=== PATIENT | female | born 1975 | race African-American/Black ===

== ENCOUNTER 2023-05-03 18:29 | Inpatient (IN) | payer OTHER, SELFPAY ==
[2023-05-03] VITALS (30 sets, daily range): BP systolic 124–163; BP diastolic 80–98; PULSE 59–78; RESP 7–28; TEMP 36.4; O2SAT 95–100; BMI 32.7
--- NOTE | 2023-05-03 19:07 | ECG_ITS ---
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
--- NOTE | 2023-05-03 19:07 | XR_ITS ---
The [address] [address] Patient Name: LEXII GRIFFIN MRN: [id number] date: 1975 Sex: F Assigned Patient Location: ER Current Patient Location: ER Accession/Order Number: [id number] Exam Date: 05/03/2023 19:15 Report Date: 05/03/2023 19:31 At the request of: GAYE CORREA Procedure: XR chest 1V EXAMINATION: XR chest 1V HISTORY: Chest pain COMPARISON: None. TECHNIQUE: Portable chest FINDINGS: The lung parenchyma is free of consolidation or infiltrate. No pneumothorax or pleural effusion. The cardiac, mediastinal and hilar contours are normal. The visualized osseous structures exhibit no gross abnormality. XR/XR chest 1V IMPRESSION: No acute cardiopulmonary abnormality. Electronically authenticated by: CHAPO LEONG Date: 05/03/2023 19:31
[2023-05-03 19:17] LABS: Basophils Percent Auto 0.4 % (0.2-2.0); Eosinophils Absolute Auto 0.2 10^3/uL (0.0-0.7); Eosinophils Percent Auto 3.2 % (0.9-7.0); Hematocrit 41.8 % (36.0-48.0); Hemoglobin 13.4 g/dL (12.0-16.0); Immature Granulocytes Abs Auto 0.02 10^3/uL (0.00-0.03); Immature Granulocytes Pct Auto 0.3 % (0.0-0.5); Lymphocytes Absolute Auto 2.7 10^3/uL (1.2-3.8); Lymphocytes Percent Auto 39.6 % (20.5-60.0); Mean Corpuscular HGB Conc 32.1 g/dL (29.9-35.2); Mean Corpuscular Hemoglobin 31.3 pg (26.7-34.0); Mean Corpuscular Volume 97.7 fL (81.0-99.0); Mean Platelet Volume 8.6 fL (9.5-13.5); Monocytes Absolute Auto 0.5 10^3/uL (0.3-0.8); Monocytes Percent Auto 6.7 % (1.7-12.0); Neutrophils Absolute Auto 3.4 10^3/uL (1.4-6.5); Neutrophils Percent Auto 49.8 % (43.0-75.0); Platelet Count 365 10^3/uL (150-450); Red Blood Count 4.28 10^6/uL (4.20-5.40); Red Cell Distribution Width 13.3 % (11.0-15.0); White Blood Count 6.9 10^3/uL (4.0-11.0)
--- NOTE | 2023-05-03 19:22 | ED_ITS ---
HPI - Chest Pain General Chief Complaint: Chest Pain Stated Complaint: CHEST PAIN Time Seen by Provider: 05/03/23 19:18 Source: patient Mode of arrival: walk-in History of Present Illness HPI narrative: past history of CAD s/p stents x3. Presents complaining of chest pain on and off for the past couple of days. Nausea and vomiting yesterday. No recurrence. Pain radiates into her left arm. No associated dyspnea MD complaint: Reports chest pain Pain radiation: Reports left arm Risk Factors Coronary artery disease risk factors: hyperlipidemia Related Data Home Medications Medication Instructions Recorded Confirmed alprazolam 0.5 mg tablet 0.5 mg PO DAILY PRN anxiety 05/03/23 05/03/23 aspirin 81 mg tablet,delayed 81 mg PO DAILY 05/03/23 05/03/23 release (Adult Low Dose Aspirin) atorvastatin 80 mg tablet 80 mg PO DAILY 05/03/23 05/03/23 celecoxib 100 mg capsule 100 mg PO DAILY 05/03/23 05/03/23 clopidogrel 75 mg tablet 75 mg PO DAILY 05/03/23 05/03/23 diltiazem HCl 180 mg 180 mg PO DAILY 05/03/23 05/03/23 capsule,extended release 24 hr isosorbide mononitrate 60 mg 60 mg PO DAILY 05/03/23 05/03/23 tablet,extended release 24 hr latanoprost 0.005 % eye drops 1 drp ophthalmic (eye) DAILY 05/03/23 05/03/23 ranolazine 500 mg tablet,extended 500 mg PO BID 05/03/23 05/03/23 release,12 hr topiramate 100 mg tablet 100 mg PO BID 05/03/23 05/03/23 Allergies Allergy/AdvReac Type Severity Reaction Status Date / Time No Known Drug Allergies Allergy Verified 05/03/23 18:39 Review of Systems ROS Status of ROS 10 or more systems reviewed and unremarkable except as noted in history and below [facility] Medical History (Updated 05/03/23 @ 18:58 by Astrid Nevarez) Surgical History (Updated 05/03/23 @ 18:58 by Astrid Nevarez) Exam Constitutional Vital Signs, click to edit/add: Last Vital Signs Pulse 60 05/03/23 20:20 Resp 7 L 05/03/23 20:20 BP 129/94 H 05/03/23 20:15 Pulse Ox 99 05/03/23 20:20 O2 Del Method Room Air 05/03/23 18:53 Common normals: no apparent distress, average body habitus, oriented x3, no limitations, healthy appearing, alert and well nourished Eye Common normals: EOMs intact bilaterally and conjunctivae normal Respiratory Common normals: normal respiratory effort, no retractions, no use of accessory muscles and clear to auscultation bilaterally Cardio Common normals: no JVD, regular rate, regular rhythm, S1 normal heart sound and S2 normal heart sound GI Common normals: Normal to inspection, nondistended, normoactive bowel sounds present, soft to palpation and non-tender Extremity Common normals: normal to inspection and full ROM Neuro Common normals: oriented x3, CN's II-XII intact bilaterally, moves all extremities, no focal motor deficits and no sensory deficits noted Psych Appearance: grossly normal Course Vital Signs Vital signs: Vital Signs Pulse Rate 72 05/03/23 18:35 Respiratory Rate 18 05/03/23 18:35 Blood Pressure 152/98 H 05/03/23 18:35 Pulse Oximetry 100 05/03/23 18:35 Oxygen Delivery Method Room Air 05/03/23 18:35 Pulse Rate 60 05/03/23 20:20 Respiratory Rate 7 L 05/03/23 20:20 Blood Pressure 129/94 H 05/03/23 20:15 Pulse Oximetry 99 05/03/23 20:20 Oxygen Delivery Method Room Air 05/03/23 18:53 MDM - Chest Pain MDM Narrative Medical decision making narrative: patient past history of CAD s/p stent placement. Pain on and off since yesterday. Nausea and vomiting yesterday. Pain radiates to left arm. EKG without acute changes. cxray clear and first troponin neg. Discussed with Hospitalist and patient accepted for admission Lab Data Labs: Lab Results 05/03/23 Range/Units 18:50 WBC 6.9 (4.0-11.0) 10^3/uL RBC 4.28 (4.20-5.40) 10^6/uL Hgb 13.4 (12.0-16.0) g/dL Hct 41.8 (36.0-48.0) % MCV 97.7 (81.0-99.0) fL MCH 31.3 (26.7-34.0) pg MCHC 32.1 (29.9-35.2) g/dL RDW 13.3 (11.0-15.0) % Plt Count 365 (150-450) 10^3/uL MPV 8.6 L (9.5-13.5) fL Neut % (Auto) 49.8 (43.0-75.0) % Lymph % (Auto) 39.6 (20.5-60.0) % [place] % (Auto) 6.7 (1.7-12.0) % Eos % (Auto) 3.2 (0.9-7.0) % Baso % (Auto) 0.4 (0.2-2.0) % Neut # (Auto) 3.4 (1.4-6.5) 10^3/uL Lymph # (Auto) 2.7 (1.2-3.8) 10^3/uL [place] # (Auto) 0.5 (0.3-0.8) 10^3/uL Eos # (Auto) 0.2 (0.0-0.7) 10^3/uL Baso # (Auto) 0.0 (0.0-0.1) 10^3/uL Abs Immat Gran (auto) 0.02 (0.00-0.03) 10^3/uL Imm/Tot Granulo (auto) 0.3 (0.0-0.5) % Sodium 144 (136-145) mmol/L Potassium 3.7 (3.5-5.1) mmol/L Chloride 109 H (98-107) mmol/L Carbon Dioxide 25.1 (21.0-32.0) mmol/L Anion Gap 13.6 BUN 18.0 (7.0-18.0) mg/dL Creatinine 1.17 H (0.55-1.02) mg/dL Est GFR ( Amer) 60 (>=60) Est GFR (Non-Af Amer) 49 L (>=60) BUN/Creatinine Ratio 15.4 Glucose 73 L (74-106) mg/dL Calcium 8.7 (8.5-10.1) mg/dL Troponin I High Sens 23.2 (4.0-51.3) pg/mL Discharge Plan Discharge Chief Complaint: Chest Pain Prescriptions / Home Meds: No Action alprazolam 0.5 mg tablet 0.5 mg PO DAILY PRN (Reason: anxiety) atorvastatin 80 mg tablet 80 mg PO DAILY celecoxib 100 mg capsule 100 mg PO DAILY clopidogrel 75 mg tablet 75 mg PO DAILY diltiazem HCl 180 mg capsule,extended release 24hr 180 mg PO DAILY isosorbide mononitrate 60 mg tablet extended release 24 hr 60 mg PO DAILY latanoprost 0.005 % drops 1 drp OPHTHALMIC (EYE) DAILY ranolazine 500 mg tablet extended release 12 hr 500 mg PO BID topiramate 100 mg tablet 100 mg PO BID aspirin [Adult Low Dose Aspirin] 81 mg tablet,delayed release (DR/EC) 81 mg PO DAILY
[2023-05-03] MEDS: MORPHINE SULFATE 4 MG/ML VIAL IM (19:37)
[2023-05-03 19:43] LABS: Anion Gap 13.6; BUN Creatinine Ratio 15.4; Calcium 8.7 mg/dL (8.5-10.1); Carbon Dioxide 25.1 mmol/L (21.0-32.0); Chloride 109 mmol/L (98-107); Estimated GFR (African America 60 (>=60); Estimated GFR (Non-African Ame 49 (>=60); Glucose 73 mg/dL (74-106); Potassium 3.7 mmol/L (3.5-5.1); Sodium 144 mmol/L (136-145); Troponin I High Sensitivity 23.2 pg/mL (4.0-51.3)
[2023-05-03] MEDS: MORPHINE SULFATE 2 MG/ML SYRINGE IV (23:31)
[2023-05-03] MEDS: ONDANSETRON PF 4 MG/2 ML VIAL IV (23:33)
[2023-05-03 23:44] LABS: Troponin I High Sensitivity 165.4 pg/mL (4.0-51.3)
[2023-05-04] VITALS (69 sets, daily range): BP systolic 104–145; BP diastolic 41–94; PULSE 56–90; RESP 2–37; TEMP 35.9–36.6; O2SAT 94–99
--- NOTE | 2023-05-04 01:24 | P.PN_ITS ---
Progress Note: Subjective Subjective Interval history: Patient is a 47-year-old female with history of CAD s/p stent x3, angina, HTN, history of prior CVA, depression and anxiety who presents with complaint of recurrent chest pain. Patient states that she awoke Thursday morning around 2 AM, 2 days ago, with sharp midsternal chest pain which radiated to both arms but more predominantly in the left arm. She reports that she took 3 nitroglycerin and then Ativan before she had enough relief to go back to sleep. Upon waking up later Thursday morning, she reports that she continued to have mild chest pain but was not as severe and was able to tolerate it. She reports having a history of angina and did not think much of it initially but states that as the day progressed, she had Chest pain with activity therefore became concerned and decided to come to the ED. In the ED, vitals were essentially stable. Labs noted for creatinine 1.17, glucose 73 otherwise rest of labs within normal limits. Initial troponin was 23.2. [address]603, NSR without any evidence of ischemia. Chest x-ray negative for acute findings. Patient was treated with morphine in the ED with improvement and admitted to the floor. Upon arrival to the floor, repeat troponins were ordered serially and troponin returned elevated at 165.4. She rates her current pain a 4-5 on pain scale. Case was discussed with on-call cardiology at [facility] who recommended initiation of heparin drip and nitroglycerin drip with plan to transfer to [facility]. Later notified by nursing staff that no beds were available overnight but would have beds available for transfer in the morning. Of note, patient does have establish care with [facility] as she sees multiple data analyst etl developer within the group. Last office visit was 1 month ago and she reports that she was instructed that she no longer needed Plavix and should remain solely on baby aspirin but she states that she decided to continue taking Plavix on her own daily. She reports being compliant with all of her medications. She initially had her first stent approximately 13 years ago. Not recall the timing of her last stent but thinks it was approximately 6 years ago. She has since had a cardiac catheterization approximately 4 years ago and did not require any intervention at that time. Exam Constitutional Vital Signs, click to edit/add: Last Vital Signs Temp 96.6 F L 05/04/23 01:11 Pulse 70 05/04/23 01:11 Resp 16 05/04/23 01:11 BP 110/67 05/04/23 01:11 Pulse Ox 99 05/04/23 01:11 O2 Del Method Room Air 05/04/23 01:11 Documenting provider has reviewed patient's vital signs: yes Common normals: no apparent distress, average body habitus and oriented x3 General appearance: cooperative and comfortable HENMT Common normals: normocephalic and head/scalp atraumatic Eye Common normals: PERRL and EOMs intact bilaterally General eye: normal appearance of both eyes Neck & C-Spine Common normals: full ROM General: normal visual inspection Respiratory Common normals: normal respiratory effort Effort & inspection: able to speak in complete sentences Auscultation: clear to auscultation bilaterally Cardio Common normals: regular rate, regular rhythm, S1 normal heart sound and S2 normal heart sound GI Common normals: Normal to inspection, nondistended, normoactive bowel sounds present and soft to palpation Auscultation: normoactive bowel sounds Palpation: soft Extremity Common normals: normal to inspection General: normal exam except as noted Neuro Common normals: oriented x3 and CN's II-XII intact bilaterally Psych Common normals: mental status grossly normal Thought content: normal thought content Memory/cognition: memory grossly intact Insight: insight good Judgement: judgment good Progress Note: Objective Labs Labs: Short CBC 05/03/23 Range/Units 18:50 WBC 6.9 (4.0-11.0) 10^3/uL Hgb 13.4 (12.0-16.0) g/dL Hct 41.8 (36.0-48.0) % Plt Count 365 (150-450) 10^3/uL BMP 05/03/23 18:50 Sodium 144 Potassium 3.7 Chloride 109 H Carbon Dioxide 25.1 BUN 18.0 Creatinine 1.17 H Glucose 73 L Calcium 8.7 Progress Note: A&P Assessment and Plan (1) Myocardial infarction: (2) H/O heart artery stent: Plan NSTEMI: Initial troponin was normal but repeat increased to 165 with ongoing chest pain. EKG without ischemia, will repeat. Echo ordered. Serial troponin. Start aspirin 325 mg, continue her Plavix. Patient also already on Lipitor 80 mg daily and continue. Head: Low-dose BB. As needed morphine for pain. Given elevated troponin, discussed with data analyst etl developer at [facility] , recommends initiation of heparin drip, nitroglycerin drip. Cardiology also recommends transferring to [facility] where patient is already established with cardiology. No beds available overnight but will have beds in a.m. for transfer. Patient updated of plan for transfer and is agreeable CAD s/p PCI x3: Continue home regimen high-dose statin, continue Plavix for now. Aspirin increased to 325 mg at this time. Patient also on isosorbide mononitrate and ranolazine which will be continued. Follows with [facility]. Plans for transfer as indicated above HTN: Continue Cardizem, add low-dose beta-jakob EMMETT, mild: IVF, monitor renal function History of CVA remotely: On aspirin, statin. Also on Plavix as above Anxiety depression: Continue home regimen Xanax, buspirone,Viibryd DVT prophylaxis: Heparin drip Full code Dispo: Patient initiated on heparin drip and nitroglycerin drip as recommended per cardiology. Patient will be transferred to [facility] this morning once bed is available as discussed with data analyst etl developer, accepting data analyst etl developer Telemedicine Attestation Telemedicine Attestation I conducted this encounter from [] via secure live, [id number] video conference with the patient, located at [facility] with [Cyndie]. Prior to the interview, the risks and benefits of telemedicine were discussed with the patient and verbal consent was obtained.
[2023-05-04 01:56] LABS: Partial Thromboplastin Time 27.6 sec (22.3-36.2)
[2023-05-04] MEDS: HEPARIN SODIUM,PORCINE/D5W 25,000 UNIT/500 ML IV.SOLN 18 UNIT IV (02:45)
[2023-05-04] MEDS: HEPARIN SODIUM (PORCINE) 5,000 UNIT/ML VIAL 4000 UNIT IV (02:45)
[2023-05-04] MEDS: NITROGLYCERIN IN 5 % DEXTROSE 50 MG/250 ML BOTTLE IV (02:46)
[2023-05-04 04:56] LABS: Basophils Percent Auto 0.2 % (0.2-2.0); Eosinophils Absolute Auto 0.2 10^3/uL (0.0-0.7); Eosinophils Percent Auto 2.9 % (0.9-7.0); Hematocrit 39.1 % (36.0-48.0); Hemoglobin 12.6 g/dL (12.0-16.0); Immature Granulocytes Abs Auto 0.02 10^3/uL (0.00-0.03); Immature Granulocytes Pct Auto 0.2 % (0.0-0.5); Lymphocytes Absolute Auto 3.6 10^3/uL (1.2-3.8); Lymphocytes Percent Auto 43.7 % (20.5-60.0); Mean Corpuscular HGB Conc 32.2 g/dL (29.9-35.2); Mean Corpuscular Hemoglobin 31.2 pg (26.7-34.0); Mean Corpuscular Volume 96.8 fL (81.0-99.0); Mean Platelet Volume 8.7 fL (9.5-13.5); Monocytes Absolute Auto 0.5 10^3/uL (0.3-0.8); Monocytes Percent Auto 5.7 % (1.7-12.0); Neutrophils Absolute Auto 3.9 10^3/uL (1.4-6.5); Neutrophils Percent Auto 47.3 % (43.0-75.0); Platelet Count 344 10^3/uL (150-450); Red Blood Count 4.04 10^6/uL (4.20-5.40); Red Cell Distribution Width 13.2 % (11.0-15.0); White Blood Count 8.3 10^3/uL (4.0-11.0)
[2023-05-04 05:23] LABS: Chol HDL Ratio 2.2; Cholesterol 126 mg/dL (<=200); HDL Cholesterol 58 mg/dL (40-60)
[2023-05-04 05:40] LABS: Triglycerides <15 mg/dL (<=150)
[2023-05-04 05:58] LABS: Partial Thromboplastin Time 102.5 sec (22.3-36.2)
--- NOTE | 2023-05-04 06:00 | ECG_ITS ---
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
[2023-05-04 06:02] LABS: Troponin I High Sensitivity 407.9 pg/mL (4.0-51.3)
[2023-05-04] MEDS: ACETAMINOPHEN 325 MG TABLET 650 MG PO (06:05)
[2023-05-04] MEDS: ASPIRIN 325 MG TABLET PO (06:23)
--- NOTE | 2023-05-04 08:00 | CA_ITS ---
Patient: LEXII GRIFFIN Exam Date: 05/04/2023 : 1975 Gender:F Ordering : DARIUSZ MUJICA Admission #: [id number] Family : DIANA MOREIRA . Order #: [id number] CLICK HERE TO VIEW EXAM ECHOCARDIOGRAM REPORT PROCEDURE: CA ECHO DOPPLER COMPLETE INDICATIONS: Chest pain, Elevated troponin COMPARISON: None. DESCRIPTION: COMPLETE ECHOCARDIOGRAM Real-time transthoracic echocardiography with 2D, M-mode, spectral and color flow Doppler performed. QUALITY: Technical quality was good. LEFT VENTRICLE: Normal chamber size. Normal left ventricular wall thickness. LV EF: Global left ventricular systolic function is normal. Visual estimation of left ventricular ejection fraction is 60-65% DIASTOLIC: Normal diastolic function. ATRIAL SEPTUM: Inadequately seen. LEFT ATRIUM: Normal chamber size. RIGHT ATRIUM: Normal chamber size. RIGHT VENTRICLE: Normal chamber size. Normal right ventricular systolic function. TRICUSPID VALVE: Normal mobility and thickness. No stenosis with trivial regurgitation. No evidence of pulmonary hypertension. RVSP 28mmHg MITRAL VALVE: Normal mobility and thickness. No evidence of mitral valve stenosis. There is no mitral annular calcification. Trivial mitral regurgitation. AORTIC VALVE: Normal trileaflet appearance. No visible sclerosis. Normal leaflet mobility. No evidence of aortic valve stenosis. No aortic regurgitation. AORTIC ROOT: Normal diameter and appearance. PULMONIC VALVE: Normal thickness and mobility. No stenosis. Trivial regurgitation. PERICARDIUM: No evidence of pericardial effusion. IVC: Collapses with inspirations. Normal size. CONCLUSION: Global left ventricular systolic function is normal; visually estimated ejection fraction is 60 to 65%. Normal diastolic function. The right ventricle is normal in size and systolic function. No significant valvular abnormalities. Adult Echocardiography Procedure Report Left Ventricle LVEDD (3.7 - 5.6 cm): 5.53 cm LVESD (2.2 - 4.0 cm): 3.59 cm LVIVS thickness (0.6 - 1.2 cm): 0.80 cm LVPW thickness (0.5 - 1.0 cm): 0.88 cm e': 0.12 m/s E - e': 5.17 LVOT Max Gradient: 5.84 mm[Hg] LVOT Area (cm2): 1.21 m/s Peak Velocity (LVOT): 1.21 m/s Mean Velocity (LVOT): 0.88 m/s LVOT Diameter 1.79 cm Left Ventricular Ejection Fraction: 65.33 % Left Atrium LA Volume Index (2D A2C): 34.89 ml/m2 Left Atrium Systolic Dimension: 3.48 cm Mitral Valve MV E to A Ratio: 0.77 Mitral Valve A-Wave Peak Velocity: 0.82 m/s Mitral Valve E-Wave Peak Velocity: 0.64 m/s Right Ventricle RV Internal Diastolic Dimension: 3.69 cm Aorta AO Root Diam: 2.80 cm Ascending Ao Diam: 2.40 cm Aortic Valve AoV Area ([place]): 1.97 cm2, 1.97 cm2 AoV Area (VTI): 2.00 cm2, 2.00 cm2 Peak Velocity(Antegrade Flow): 1.55 m/s Peak Gradient(Antegrade Flow): 9.58 mm[Hg] Mean Velocity(Antegrade Flow): 1.03 m/s Mean Gradient(Antegrade Flow): 4.86 mm[Hg] Velocity Time Integral: 33.11 cm Tricuspid Valve Peak Velocity (Regurgitant Flow): 2.27 m/s, 2.48 m/s, 2.49 m/s Pulmonic Valve Mean Gradient: 3.91 mm[Hg], 3.19 mm[Hg] Mean Velocity: 0.96 m/s, 0.84 m/s Peak Velocity: 1.24 m/s Peak Gradient: 6.20 mm[Hg], 6.20 mm[Hg] Right Atrium Right Atrium Systolic Pressure: 62.55 ml, 62.55 ml Dictated by: Leighann Medina M.D. on 05/04/2023 at 16:24 Approved by: Leighann Medina M.D. on 05/04/2023 at 16:27
--- NOTE | 2023-05-04 08:09 | P.HP_ITS ---
H&P: HPI History of Present Illness Chief complaint: CHEST PAIN Narrative: patient is a 47-year-old female with past medical history of coronary artery disease status post stents ?3, angina, hypertension, history of prior CVA, depression and anxiety and a history of noncompliance. 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 At that time she took nitroglycerin and an Ativan and was able to fall back asleep. Chest pain returned on Thursday and she presented to the Emergency Room at that time. Original troponin was within normal limits and repeat troponin was elevated at one sixty-five and 3rd troponin was elevated in the 400s. Per nighttime hospitalist note, Case was discussed with on-call cardiology at [facility] who recommended initiation of heparin drip and nitroglycerin drip with plan to transfer to [facility]. Later notified by nursing staff that no beds were available overnight but would have beds available for transfer in the morning. patient is currently awaiting bed transfer to [place]. She has been on the nitro drip and heparin drip and reports her chest pain is rated at about a two. She reports last cardiac catheterization was approximately six years ago with no intervention at that time. She denies any family cardiac history. She reports compliance with her medications although pharmacy states many of her medications have not been filled since September. Review of Systems ROS Narrative ROS: a complete review of systems were reviewed with patient and are positive as below or listed in History of Chief Complaint. General: no fever, chills, night sweats Head: no headache, trauma, visual changes, nausea or vomiting Skin: no reported rashes, itching or sores Eyes: no blurriness of vision Ears: no reported hearing loss, vertigo, earache, or tinnitus Throat: no sore throat, hoarseness, swelling of neck, or tongue pain Heart: chest pain Lungs: shortness of breath, no cough GI: no diarrhea or vomiting/nausea Urinary: no urinary urgency, frequency or pain Neuro: no numbness or tingling HEM: no bleeding issues or bruising ENDO: no thyroid problems Psych: no anxiety or depression [facility] Medical History (Updated 05/04/23 @ 11:20 by Hilda Silver DO) Surgical History Social History Within the past year, how often did you have a drink containing alcohol: monthly or less Within the past year, how many standard drinks containing alcohol did you have on a typical day: 1 or 2 Within the past year, how often did you have six or more drinks on one occasion: never Total score: 0 Score interpretation: A score less than 3 is consistent with normal alcohol consumption. 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 Known occupational exposures/hazards: No Highest level of school completed/degree received: Associate degree: occupational, technical, vocational program Little interest or pleasure in doing things: several days Feeling down, depressed, or hopeless: not at all Feel stressed/tense/nervous/anxious/difficulty sleeping: to some extent Life stressors: other Life stressor details: declines to answer Gender Identity: female Meds Home Medications and Allergies Home Medications Medication Instructions Recorded Confirmed Type alprazolam 0.5 mg tablet 0.5 mg PO DAILY PRN anxiety 05/03/23 05/03/23 History aspirin 81 mg tablet,delayed 81 mg PO DAILY 05/03/23 05/03/23 History release (Adult Low Dose Aspirin) atorvastatin 80 mg tablet 80 mg PO DAILY 05/03/23 05/03/23 History buspirone 7.5 mg tablet 7.5 mg PO BID 05/03/23 History celecoxib 100 mg capsule 100 mg PO DAILY 05/03/23 05/03/23 History clopidogrel 75 mg tablet 75 mg PO DAILY 05/03/23 History diltiazem HCl 180 mg 180 mg PO DAILY 05/03/23 History capsule,extended release 24 hr isosorbide mononitrate 60 mg 60 mg PO DAILY 05/03/23 05/03/23 History tablet,extended release 24 hr latanoprost 0.005 % eye drops 1 drp ophthalmic (eye) .QHS 05/03/23 05/04/23 History nitroglycerin 0.4 mg sublingual 0.4 mg sublingual PRN 05/03/23 05/03/23 History tablet ranolazine 500 mg tablet,extended 500 mg PO BID 05/03/23 05/03/23 History release,12 hr topiramate 100 mg tablet 100 mg PO BID 05/03/23 History vilazodone 40 mg tablet 40 mg PO .HS 05/03/23 History brimonidine 0.2 %-timolol 0.5 % 1 drp ophthalmic (eye) BID 05/04/23 05/04/23 History eye drops ([place]) Allergies Allergy/AdvReac Type Severity Reaction Status Date / Time No Known Drug Allergies Allergy Verified 05/03/23 18:39 Exam Narrative Exam Narrative: General: Patient is alert, and oriented to person, place and time with normal affect, proper hygiene Skin: no visible rashes, or ulcers Head: atraumatic, acephalic Eyes: PERRLA, no nystagmus present, conjunctiva clear, no scleral icterus Neck: no masses palpated, normal thyroid, no JVD or audible carotid bruits Heart: Normal rate and rhythm, no murmurs/rubs/gallops Lungs: no audible wheezes, crackles and normal breath sounds all lung massey Abdomen: Normal audible bowel sounds, no distension, No palpable masses, no organomegaly, no rebound/guarding/ or rigidity Musculoskeletal: no swelling bilateral lower extremities Neuro: CN II-X grossly intact, normal sensation upper and lower extremities Constitutional Vital Signs, click to edit/add: Last Vital Signs Temp 96.9 F L 05/04/23 06:16 Pulse 67 05/04/23 06:16 Resp 16 05/04/23 06:16 BP 118/79 05/04/23 06:16 Pulse Ox 98 05/04/23 06:16 O2 Del Method Room Air 05/04/23 06:16 Results Labs Labs: Short CBC 05/03/23 05/04/23 Range/Units 18:50 04:03 WBC 6.9 8.3 (4.0-11.0) 10^3/uL Hgb 13.4 12.6 (12.0-16.0) g/dL Hct 41.8 39.1 (36.0-48.0) % Plt Count 365 344 (150-450) 10^3/uL BMP 05/03/23 18:50 Sodium 144 Potassium 3.7 Chloride 109 H Carbon Dioxide 25.1 BUN 18.0 Creatinine 1.17 H Glucose 73 L Calcium 8.7 Assessment and Plan Assessment and Plan (1) Non-ST elevation (NSTEMI) myocardial infarction: Assessment and Plan: EKG without acute ischemia, but having active chest pain and positive troponin ?2, echo pending, continue aspirin and Plavix was started on a heparin drip and monitoring. Continue high-dose Lipitor 80 mg daily. Also on nitroglycerin. Will be transferred to [facility] once bed available, patient understands plan and has no other questions at this time. (2) CAD in [place] artery: Assessment and Plan: continue statin (3) Hypertension: Assessment and Plan: continue Cardizem, add low-dose beta-jakob (4) EMMETT (acute kidney injury): Assessment and Plan: IVF, monitor renal function (5) CVA (cerebral vascular accident): Assessment and Plan: On aspirin, statin. Also on Plavix as above Qualifiers: CVA mechanism: unspecified Qualified Code(s): I63.9 - Cerebral infarction, unspecified (6) Anxiety with depression: Assessment and Plan: will hold buspar and Viibryd Plan patient is full code, currently on a heparin and nitro drip in the ICU. Transfer request has been made and awaiting bed at [facility] with accepting tc operator Dr. Lowry
--- NOTE | 2023-05-04 10:44 | CM.NOTE ---
Rounds made with Dr. Silver, pt awaiting bed at [facility] for transfer.
[2023-05-04] MEDS: 0.9 % SODIUM CHLORIDE 1,000 ML 100 ML IV (11:24)
--- NOTE | 2023-05-04 11:27 | PM.DS1 ---
DS: Providers Provider Date of admission: 05/03/23 21:57 Primary care physician: MEAGHAN BRIGHT Admitting clinician: Annabel Husain Attending physician on discharge: Hilda Silver Anticipated date of discharge: 05/04/23 DS: Diagnosis Discharge Diagnosis (1) Non-ST elevation (NSTEMI) myocardial infarction: (2) CAD in [place] artery: (3) Hypertension: (4) EMMETT (acute kidney injury): (5) CVA (cerebral vascular accident): Qualifiers: CVA mechanism: unspecified Qualified Code(s): I63.9 - Cerebral infarction, unspecified (6) Anxiety with depression: DS: Summary Hospital Course Hospital Course: patient placed on nitro and heparin drip, home medications, high dose statin, beta jakob. Echo pending. Will be transferred to [facility] for higher level of care and Contact Lens Manufacturer/interventional cardiology Time Spent with Patient Time attestation: Total time spent providing and/or coordinating discharge services: Time spent: greater than 30 minutes Exam Narrative Exam Narrative: no changes in exam from admission H&P dated today Constitutional Vital Signs, click to edit/add: Last Vital Signs Temp 98 F 05/04/23 10:00 Pulse 63 05/04/23 10:00 Resp 16 05/04/23 10:00 BP 115/61 05/04/23 10:00 Pulse Ox 98 05/04/23 10:00 O2 Del Method Room Air 05/04/23 10:00 DS: Data Data Completed and Pending Labs on day of discharge: Labs from last 24 hours 05/04/23 05/04/23 05/03/23 04:03 01:36 23:06 WBC 8.3 RBC 4.04 L Hgb 12.6 Hct 39.1 MCV 96.8 MCH 31.2 MCHC 32.2 RDW 13.2 Plt Count 344 MPV 8.7 L Neut % (Auto) 47.3 Lymph % (Auto) 43.7 Luce % (Auto) 5.7 Eos % (Auto) 2.9 Baso % (Auto) 0.2 Neut # (Auto) 3.9 Lymph # (Auto) 3.6 Luce # (Auto) 0.5 Eos # (Auto) 0.2 Baso # (Auto) 0.0 Abs Immat Gran (auto) 0.02 Imm/Tot Granulo (auto) 0.2 APTT 102.5 H* 27.6 Sodium Potassium Chloride Carbon Dioxide Anion Gap BUN Creatinine Est GFR ( Amer) Est GFR (Non-Af Amer) BUN/Creatinine Ratio Glucose Calcium Troponin I High Sens 407.9 H* 165.4 H* Triglycerides <15 Cholesterol 126 LDL Cholesterol, Calc 65.0 VLDL Cholesterol 3.0 HDL Cholesterol 58 Cholesterol/HDL Ratio 2.2 05/03/23 18:50 WBC 6.9 RBC 4.28 Hgb 13.4 Hct 41.8 MCV 97.7 MCH 31.3 MCHC 32.1 RDW 13.3 Plt Count 365 MPV 8.6 L Neut % (Auto) 49.8 Lymph % (Auto) 39.6 Luce % (Auto) 6.7 Eos % (Auto) 3.2 Baso % (Auto) 0.4 Neut # (Auto) 3.4 Lymph # (Auto) 2.7 Luce # (Auto) 0.5 Eos # (Auto) 0.2 Baso # (Auto) 0.0 Abs Immat Gran (auto) 0.02 Imm/Tot Granulo (auto) 0.3 APTT Sodium 144 Potassium 3.7 Chloride 109 H Carbon Dioxide 25.1 Anion Gap 13.6 BUN 18.0 Creatinine 1.17 H Est GFR ( Amer) 60 Est GFR (Non-Af Amer) 49 L BUN/Creatinine Ratio 15.4 Glucose 73 L Calcium 8.7 Troponin I High Sens 23.2 Triglycerides Cholesterol LDL Cholesterol, Calc VLDL Cholesterol HDL Cholesterol Cholesterol/HDL Ratio Discharge Plan Discharge Disposition: [facility] Acute Care Hospital Condition: Fair Assessment: NSTEMI: d/w Dr Lowry, environmental protection economist [facility] rec initiation of heparin gtt, NG gtt and transfer to [facility] Activity Restrictions/Additional Instructions: bed rest Discharge Location: [facility] Discharge location: [facility]
[2023-05-04 12:36] LABS: Partial Thromboplastin Time 28.8 sec (22.3-36.2)
[2023-05-04] MEDS: MORPHINE SULFATE 2 MG/ML SYRINGE IV ×3 (16:03→23:34)
[2023-05-04] MEDS: ONDANSETRON PF 4 MG/2 ML VIAL IV (16:03)
--- NOTE | 2023-05-04 23:54 | PC.NURSE ---
05/04/20231899 Nitroglycerine drip infusing at beginning of this RN shift 20 MCG/MIN or 6 ML/HR. 2009 Patient noting pain in midsternal chest 7/10. Nitroglycerin titrated to 30 MCG/MIN or 9 ML/HR for pain control. Tele-Hospitalist construction craft laborer updated on patient's level of pain and titration of Nitroglycerin drip. 2099 Patient rates pain 4/10 in midsternal chest and notes as tolerable at this time.
[2023-05-05] VITALS (54 sets, daily range): BP systolic 113–191; BP diastolic 60–121; PULSE 62–103; RESP 4–26
[2023-05-05 02:05] LABS: Partial Thromboplastin Time 51.3 sec (22.3-36.2)
[2023-05-05] MEDS: MORPHINE SULFATE 2 MG/ML SYRINGE IV (06:27)
--- NOTE | 2023-05-05 06:44 | PC.NURSE ---
Patient notes having 5/10 midsternal chest pain. BP elevated and patient notes she is in severe pain and has to use bathroom. Patient states her BP is high due level of pain and needs to use bathroom urgently. BP rechecked after using bathroom with improvement.
[2023-05-05 07:45] LABS: Basophils Percent Auto 0.6 % (0.2-2.0); Eosinophils Absolute Auto 0.3 10^3/uL (0.0-0.7); Eosinophils Percent Auto 4.1 % (0.9-7.0); Hematocrit 37.4 % (36.0-48.0); Hemoglobin 12.3 g/dL (12.0-16.0); Immature Granulocytes Abs Auto 0.01 10^3/uL (0.00-0.03); Immature Granulocytes Pct Auto 0.1 % (0.0-0.5); Lymphocytes Absolute Auto 3.1 10^3/uL (1.2-3.8); Mean Corpuscular HGB Conc 32.9 g/dL (29.9-35.2); Mean Corpuscular Volume 97.4 fL (81.0-99.0); Mean Platelet Volume 8.4 fL (9.5-13.5); Monocytes Absolute Auto 0.4 10^3/uL (0.3-0.8); Monocytes Percent Auto 6.1 % (1.7-12.0); Neutrophils Absolute Auto 3.3 10^3/uL (1.4-6.5); Neutrophils Percent Auto 46.1 % (43.0-75.0); Platelet Count 306 10^3/uL (150-450); Red Blood Count 3.84 10^6/uL (4.20-5.40); Red Cell Distribution Width 13.1 % (11.0-15.0); White Blood Count 7.2 10^3/uL (4.0-11.0)
[2023-05-05 08:07] LABS: Alanine Aminotransferase 27 U/L (14-59); Alkaline Phosphatase 45 U/L (46-116); Anion Gap 12.9; Aspartate Amino Transferase 18 U/L (15-37); BUN Creatinine Ratio 14.6; Bilirubin Total 0.3 mg/dL (0.2-1.0); Calcium 8.2 mg/dL (8.5-10.1); Carbon Dioxide 25.8 mmol/L (21.0-32.0); Chloride 102 mmol/L (98-107); Estimated GFR (African America >60 (>=60); Estimated GFR (Non-African Ame >60 (>=60); Globulin 3.1 g/dL; Glucose 219 mg/dL (74-106); Potassium 3.7 mmol/L (3.5-5.1); Sodium 137 mmol/L (136-145); Total Protein 6.1 g/dL (6.4-8.2)
[2023-05-05 08:26] LABS: Troponin I High Sensitivity 992.1 pg/mL (4.0-51.3)
[2023-05-05 08:54] LABS: PTT Heparin Monitor 60.8 sec (39.5-54.2)
[2023-05-05] MEDS: DILTIAZEM HCL 180 MG CAP.ER.24H PO (09:55)
[2023-05-05] MEDS: ASPIRIN 325 MG TABLET PO (09:55)
[2023-05-05] MEDS: ATORVASTATIN CALCIUM 40 MG TABLET 80 MG PO (09:55)
[2023-05-05] MEDS: METOPROLOL TARTRATE 25 MG TABLET 12.5 MG PO (09:56)
[2023-05-05] MEDS: CLOPIDOGREL BISULFATE 75 MG TABLET PO (09:56)
[2023-05-05] MEDS: RANOLAZINE 500 MG TAB.ER.12H PO (09:56)
[2023-05-05] MEDS: NITROGLYCERIN IN 5 % DEXTROSE 50 MG/250 ML BOTTLE IV (09:57)
--- NOTE | 2023-05-05 10:32 | PC.NURSE ---
Report called to [facility] [place] for pending transfer to [id number]
== END 2023-05-05 11:18 | disposition short-term general hospital (02) | DRG 281 ==
LOC: ER 20:45 → ICU 22:01
PROVIDERS: Internal Medicine; Admitting Provider Family Medicine; Emergency Provider Internal Medicine; PCP Family Medicine; Visit Provider Family Medicine
DX: I21.4 Non-ST elevation (NSTEMI) myocardial infarction (principal); N17.9 Acute kidney failure, unspecified; I25.10 Atherosclerotic heart disease of native coronary artery without angina pectoris; I10 Essential (primary) hypertension; F41.9 Anxiety disorder, unspecified; F32.A Depression, unspecified; T50.916A Underdosing of multiple unspecified drugs, medicaments and biological substances, initial encounter; Z91.128 Patient's intentional underdosing of medication regimen for other reason; I25.2 Old myocardial infarction; Z95.5 Presence of coronary angioplasty implant and graft; Z86.73 Personal history of transient ischemic attack (TIA), and cerebral infarction without residual deficits; Z79.82 Long term (current) use of aspirin; Z79.02 Long term (current) use of antithrombotics/antiplatelets; Z79.899 Other long term (current) drug therapy
CPT/HCPCS: 36415; 71045; 80048; 80053; 80061; 83880; 84484; 85025; 85730; 93005; 93306; 96372; 96374; 96375; 96376; 99285; G0378; Q3014

== ENCOUNTER 2025-07-24 07:59 | Outpatient (OUT) | payer MEDICARE, SELFPAY ==
--- OUTSIDE RECORDS SUMMARY | 2025-07-10 10:40 | XMS_ITS | Encounter Summary ---
Author Organization [facility] Address [address] [place] [address] Care Team Providers Care Adjunct Philosophy Faculty Name Role Phone Mike Shaw DO Primary Care Provider [phone] Reason for Visit * ReasonCommentsFollow-upPatient is here today for a follow up appointment per Trisha Moore CNP request. Patient states shehas an issue patient states she laid down last Thursday and the center of her chest felt tender, patient states the next day she had increased pain in her back and shoulder blade, which radiates down her right arm, nothing relieve the pain. At this time the chest pain has resolved, right arm pain continues which radiates to her hand causing tingling continues. Patient is questing if her stent migrated.Coronary Artery DiseaseHypertensionNSTEMIAcute coronary syndromCerebrovascular Accident MigraineValve DisorderMitral valve regurgitationChest PainPain on the right side which she describes as angina painHyperlipidemiaLoop recorder Encounter Details DateTypeDepartmentCare Team (Latest Contact Info)Mninhkdknvo40/01/2025 10:40 AM ESTOffice [facility] [address] [place] [address] [place] Santiago MD [address] [place] [address] Coronary artery disease of [place] artery of [place] heart with stable angina pectoris (Primary Dx); Right arm pain Social History Tobacco UseTypesPacks/DayYears UsedDateSmoking Tobacco: NeverSmokeless Tobacco: NeverAlcohol UseStandard Drinks/WeekCommentsNot Currently0 (1 standard drink = 0.6 oz pure alcohol)Humiliation, Afraid, Rape, and Kick questionnaireAnswerDate RecordedWithin the last year, have you been afraid of your partner or ex-partner?No05/05/2023Emotionally AbusedNot on file05/05/2023hysically Abused Not on file05/05/2023Sexually AbusedNot on file05/05/2023Overall Financial Resource Strain (CARDIA)AnswerDate RecordedHow hard is it for you to pay for the very basics like food, housing, medical care, and heating?Not hard at all 05/05/2023UT Safety & EnvironmentAnswerDate RecordedWithin the last year, have you been afraid of your partner or ex-partner?No05/05/2023Emotionally AbusedNot on file05/05/2023hysically AbusedNot on file05/05/2023Sexually AbusedNot on file05/05/2023hysically or Sexually AbusedNot on file05/05/2023Transportation AnswerDate RecordedIn the past 12 months, has lack of transportation kept you from medical appointments or from getting medications?No05/05/2023Lack of Transportation (Non-Medical)Not on file05/05/2023Housing Stability Vital Sign AnswerDate RecordedUnable to Pay for Housing in the Last YearNot on file 05/05/2023Number of Places Lived in the Last YearNot on file05/05/2023In the last 12 months, was there a time when you did not have a steady place to sleep or slept in ashelter (including now)?No05/05/2023Hunger Vital SignAnswerDate RecordedWithin the past 12 months, you worried that your food would run out before you got the money to buymore.Never true05/05/2023Ran Out of Food in the Last YearNot on file05/05/2023CommentsUnknownSex and Gender Information ValueDate RecordedSex Assigned at PxumwAzsjtg58/27/2023 10:09 AM EDTLegal Sex Irarxd9802/05/2022 10:18 PM EDTGender ClgqlpnsPtcypg21/27/2023 10:09 AM EDTSexual OrientationChoose not to tqxmgsap53/27/2023 10:09 AM EDTdocumented as of this encounter Last Filed Vital Signs Vital SignReadingTime TakenCommentsBlood Kvqfppki312/6807/10/2025 10:58 AM EST Ijsjb107907/10/2025 10:58 AM ESTTemperature--Respiratory Rate--Oxygen Saturation 98%07/10/2025 10:58 AM ESTInhaled Oxygen Concentration--Gebtfb14.2 kg (201 lb) 07/10/2025 10:58 AM AZTGdpqru840.6 cm (5' 6 )07/10/2025 10:58 AM ESTBody Mass Index32.44109/10/2024 10:58 AM ESTdocumented in this encounter Progress Notes * [place] Santiago MD - 07/10/2025 10:40 AM EST Subjective Patient ID: Annabel Lundberg is a 49 y.o. female who presents for Follow-up (Patient is here today for a follow up appointment per Trisha Moore CNP request. Patient states she has an issue patient states she laid down last Thursday and the center of her chest felt tender, patient states the next day she had increased pain in her back and shoulder blade, which radiates down her right arm, nothing relieve the pain. At this time the chest pain has resolved, right arm pain continues which radiates toher hand causing tingling continues. Patient is questing if her stent migrated.), Coronary Artery Disease, Hypertension, NSTEMI, Acute coronary syndrom, Cerebrovascular Accident, Migraine, Valve Disor santos (Mitral valve regurgitation/), Chest Pain (Pain on the right side which she describes as anginapain), Hyperlipidemia, and Loop recorder. Last week had tenderness in chest when lying on the stomach then layed on back and better. Woke up next day and was having severe pain R scapula; put on lidocaine patches it was horrible After a day or two then pain moved into R arm and scapular pain is gone. 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 Pertinent negatives include no chest tightness, dizziness or shortnessof breath. Risk factors include hyperlipidemia. Hypertension Associated symptoms include chest pain. Pertinent negatives include no shortness of breath. Hypertensive end-organ damage includes CVA. Cerebrovascular Accident Associated symptoms include chest pain. Migraine Pertinent negatives include no dizziness or seizures. Chest Pain Pertinent negatives include no dizziness or shortness of breath. Her past medical history is significant for CAD and hyperlipidemia. Pertinent negatives for past medical history include no seizures. Hyperlipidemia Associated symptoms include chest pain. Pertinent negatives include no shortness of breath. Review of Systems Respiratory: Negative for chest tightness, shortness of breath and wheezing. Cardiovascular: Positive for chest pain. Gastrointestinal: Negative for blood in stool. Genitourinary: Negative for hematuria. Neurological: Negative for dizziness, seizures and syncope. Objective Visit Vitals BP 102/68 (BP Location: Left arm, Patient Position: Sitting) Pulse 68 Physical Exam Constitutional: Appearance: Normal appearance. HENT: Head: Normocephalic and atraumatic. Cardiovascular: Rate and Rhythm: Normal rate and regular rhythm. No extrasystoles are present. Chest Wall: PMI is not displaced. No thrill. Pulses: Normal pulses. Carotid pulses are 2+ on the right side and 2+ on the left side. Heart sounds: Murmur heard. Systolic murmur is present with a grade of 2/6. No diastolic murmur is present. No friction rub. No gallop. Comments: Pulses normal R radial, brachial, carotid and supraclavicular subclavian artery without bruit Pulmonary: Effort: Pulmonary effort is normal. Breath sounds: Normal breath sounds. Abdominal: Palpations: Abdomen is soft. Musculoskeletal: Right lower leg: No edema. Left lower leg: No edema. Neurological: General: No focal deficit present. Mental Status: She is alert and oriented to person, place, and time. Mental status is at baseline. Psychiatric: Mood and Affect: Mood normal. Behavior: Behavior normal. Thought Content: Thought content normal. Judgment: Judgment normal. EKG strip today normal SR normal EKG, no STT wave changes Assessment/Plan Recent onset severe R scapular pain that now has migrated into R arm. Will get CTA chest to assess for aortic or subclavian dissection. Given history of angina in back, will also obtain lexiscan stress test. Refer to neurology Bej for assessment of arm pain. Diagnosis Plan 1. Coronary artery disease of ty[place] artery of [place] heart with stable angina pectoris 2. Right arm pain Follow up in about 1 week (around 07/17/2025) for Recheck. documented in this encounter Plan of Treatment DateTypeDepartmentCare Team (Latest Contact Info)Oqkjecgkwvg42/18/2025 11:40 AM ESTOffice Visit [facility] [address] [place] [address] Nicky Barry, HYDROMETER TESTER [address] [place] [address] documented as of this encounter Visit Diagnoses Diagnosis Coronary artery disease of ty[place] artery of [place] heart with stable angina pectoris- Primary Right arm pain Pain in soft tissues of limb documented in this encounter Care Teams Team MemberRelationshipSpecialtyStart DateEnd Date Mike Shaw DO PCP - General11/04/22documented as of this encounter
--- OUTSIDE RECORDS SUMMARY | 2025-07-24 08:01 | XMS_ITS | Encounter Summary ---
Author Organization [facility] Address [address] [place] [address] Care Team Providers Care Facility Maintenance Mechanic Name Role Phone Mike Shaw DO Primary Care Provider [phone] Reason for Referral * (Routine) - Pending ReviewSpecialtyDiagnoses / ProceduresReferred By Contact Referred To Contact Diagnoses Other chest pain Procedures ECG 12 lead [place] Santiago MD [address] [place] [address] Phone: tel: fax: Referral IDStatusReasonStart DateExpiration DateVisits RequestedVisits [id number] [id number]/ Encounter Details DateTypeDepartmentCare Team (Latest Contact Info)Wctpymluzql58/01/2025Orders Only [facility] [address] [place] [address] Aliyah Hammer MA Other chest pain (Primary Dx) Social History Tobacco UseTypesPacks/DayYears UsedDateSmoking Tobacco: NeverSmokeless [...] and Gender Information ValueDate RecordedSex Assigned at MzavsQbacea92/27/2023 10:09 AM EDTLegal Sex Mprpkd4802/05/2022 10:18 PM EDTGender NuvjkytxWrjysd09/27/2023 10:09 AM EDTSexual OrientationChoose not to kicuhwpe56/27/2023 10:09 AM EDTdocumented as of this encounter Plan of Treatment DateTypeDepartmentCare Team (Latest Contact Info)Ektyndjfnom44/ 11:40 AM ESTOffice Visit [facility] [address] [place] [address] Nicky Barry, BUNCHER HAND [address] [place] [address] NameTypePriorityAssociated DiagnosesOrder ScheduleECG 12 leadECGRoutine Other chest pain Ordered: 07/10/2025documented as of this encounter Visit Diagnoses Diagnosis Other chest pain- Primary documented in this encounter Care Teams Team MemberRelationshipSpecialtyStart DateEnd Date Mike Shaw DO PCP - General11/04/22documented as of this encounter
--- OUTSIDE RECORDS SUMMARY | 2025-07-24 08:01 | XMS_ITS | Patient Health Record ---
Author Organization [facility] [place] Address [address] [place] [address] Care Team Providers Care Rubber Gasket Inspector Trimmer Name Role Phone Krysten Shaw MD Primary Care Provider Unavail able Reason For Referral No Information Medications Medication SIG (Take, Route, Frequency, Duration) Notes Start Date End Date Status Lipitor 80 mg 08/10/18999038IbawkcIrowgh43/01/5442YpvxmvDkczc81/01/1900ActiveLabetalol HCl 200 mg 08/10/18999787ElnpigNxxbcl49/01/1900ActiveAspirin Low Dose 81 mg Active trazodone 150 mg ActiveVenlafaxine HCl08/10/18997834IluhocDkqvej86/01/1900 ActiveCardizem CD ActiveCymbalta 60 mg Active Problems Problem Type SNOMED Code ICD Code Onset Dates Problem Status W/U Status Risk Notes Problem Hypertension (88511732) Hypertension (I10 ) ActiveconfirmedProblemCoronary artery disease (47597682)CAD (coronary artery disease) (I25.10)ActiveconfirmedProblemCVA - Cerebrovascular accident (048459005)CVA (cerebral vascular accident) (I63.9)ActiveconfirmedProblemAcute non-ST segment elevation myocardial infarction (470643727)NSTEMI (non-ST elevated myocardial infarction) (I21.4)Activeconfirmed Plan Of Treatment No Information Insurance Providers Payer Name Payer Address Payer Phone Subscriber Number Group Number Insured Name Patient Relationship to Insured Coverage Start Date Coverage End Date [employer] [address] [address] [place], [place] [id number] Annabel Sheppard Self - patient is the insured 3 [place] [id number], LluviagorgeHillelf - patient is the [id number] [place], [place] [id number], LluviaIsabelaelf - patient is the [id number]
--- OUTSIDE RECORDS SUMMARY | 2025-07-24 08:01 | XMS_ITS | Clinical Summary ---
Author Organization [facility] Address [address] [place] [address] Care Team Providers Care Library Helper Name Role Phone Mike Shaw DO Primary Care Provider [phone] Allergies No known active allergies Medications MedicationSigDispense QuantityRefillsLast FilledStart DateEnd DateStatus aspirin 81 mg EC tablet Take 81 mg by mouth in the morning.Active atorvastatin (Lipitor) 80 mg tablet Take 80 mg by mouth in the morning.Active busPIRone (Buspar) 7.5 mg tablet Take 7.5 mg by mouth in the morning and at bedtime.Active dilTIAZem ER (Tiazac) 180 mg 24 hr capsule Take 180 mg by mouth in the morning and at bedtime.07/29/2021ctive eszopiclone (Lunesta) 1 mg tablet Take 1 mg by mouth at bedtime.Active linaCLOtide (Linzess) 145 mcg capsule Take 145 mcg by mouth if needed.Active ranolazine (Ranexa) 500 mg 12 hr tablet Take 500 mg by mouth in the morning and at bedtime.Active traZODone (Desyrel) 100 mg tablet Take 100 mg by mouth at bedtime.Active vilazodone (Viibryd) 40 mg tablet Take 40 mg by mouth in the morning.Active ALPRAZolam (Xanax) 0.5 mg tablet Take 0.5 mg by mouth if needed in the morning and at bedtime for anxiety. 06/10/2022ctive cyanocobalamin (Vitamin B-12) 1,000 mcg/mL injection Inject 1,000 mcg under the skin every 30 (thirty) days. On the of the month 09/17/2021ctive raNITIdine (Zantac) 150 mg capsule Take 150 mg by mouth in the morning and 150 mg in the evening.Active topiramate (Topamax) 100 mg tablet Take 100 mg by mouth in the morning and at bedtime.Active celecoxib (CELEBREX ORAL) Take by mouth in the morning and at bedtime.Active glucosamine-chondroitin 500-400 mg tablet Take 1 tablet by mouth in the morning.Active Emgality Pen 120 mg/mL auto-injector Inject 240 mg under the skin.05/09/2024ctive SUMAtriptan (Imitrex) 100 mg tablet Take 100 mg by mouth.03/29/2024ctive nitroglycerin (Nitrostat) 0.4 mg SL tablet Indications:Chest pain, unspecified typePlace 1 tablet (0.4 mg) under the tongue every 5 (five) minutes if needed for chest pain. 25 tablet 4Active colchicine 0.6 mg tablet Indications:Gout, unspecified cause, unspecified chronicity, unspecified site Take 1 tablet (0.6 mg) by mouth in the morning. 90 tablet 501/6Active modafinil (Provigil) 200 mg tablet 1 tab QAM and 1/2 tab @ [id number] hydrOXYzine HCL (Atarax) 50 mg tablet if needed.5Active semaglutide, weight loss, 1.7 mg/0.75 mL pen injector Inject 1.8 mg under the skin once a week.4Active metoprolol succinate XL (Toprol-XL) 25 mg 24 hr tablet Indications:NSTEMI (non-ST elevated myocardial infarction) ([facility]/HCC)TAKE 1 TABLET BY MOUTH EVERY MORNING DO NOT CRUSH OR CHEW 90 tablet 5Active isosorbide mononitrate ER (Imdur) 60 mg 24 hr tablet Indications:Chest pain, unspecified typeTAKE 1 TABLET BY MOUTH EVERY MORNING AND TAKE TWO TABLETS BY MOUTH EVERY EVENING 270 tablet 5Active isosorbide mononitrate ER (Imdur) 60 mg 24 hr tablet Indications:Chest pain, unspecified typeTake 1 tablet in the morning, and take 2 tablets in the evening 270 tablet 311/411/Discontinued Active Problems ProblemNoted DateDiagnosed DateAbnormal weight gain07/10/2025Encounter for dietary counseling and nfclzbsauylj96/01/2025Exercise ircuzwkwbu00/01/2025 Fibroid tlmlpj3507/10/2025Hx of heart artery stent07/10/2025Implantable loop recorder syzrzqo9507/10/2025Pain of left thumb05/09/2025ute right-sided low back pain without mcavsaak34/30/1681Ahvhljtghdh44/28/2025 Overview (10/18/2024): --- diurnal, despite adequate treatment of NASRIN. Lumbar paraspinal muscle spasm09/06/2024Shift work sleep mpcxfizr30/23/2024 Overview (10/18/2024): Last Assessment & Plan: (Continue blue-blocking glasses @ 1899.) Add melatonin ER 5-10 @ 1999. Add modafinil 200 1/2-1 qam. Umbilical hernia, bpozywdkhvyc80rachnoid cyst of pituitary gland/ Overview (09/01/2023): Last Assessment & Plan: MR brain c/s Gd, thin cuts through pituitary. Eval ?arachnoid cyst, any change in size? Last Assessment & Plan: MR brain c/s Gd, thin cuts through pituitary. Eval ?arachnoid cyst, any change in size? Acute non-ST segment elevation myocardial qlolqioerg80 Cerebrovascular accident (CVA)NSTEMI (non-ST elevated myocardial infarction)05/05/2023oronary artery disease of cheesh-na artery of cheesh-na heart with stable angina lkaobncv22/27/2023 Assessment & Plan (04/05/2023 5:26 PM EDT): - History of PCI to LAD and RCA -follow up with dr. caputo as scheduled - continue aspirin 81 mg daily, amlodipine 10 mg daily, Lipitor 80 mg daily. her stent is from over a year ago and she continues to be on Plavix, discussed ok to d/c plavix -has hx of coronary vasospams, ct imdur/ranexa Benign hypertensive heart disease without congestive heart dossrye9604/05/2023 Assessment & Plan (04/05/2023 5:25 PM EDT): stable Syncope and qgbadqpy62/16/2023 Assessment & Plan (04/05/2023 5:27 PM EDT): -per neurology documentation they are concerned for cardiac etiology and recommended loop -will start with 30 day event monitor, follow up with dr. pedersen and then can consider loop pendingmonitor results Cerebral ekmrrjpflj01/06/202309/12 piyefkzmxa48 Overview (06/02/2023): Last Assessment & Plan: (Continue B12 self-inj.) Last Assessment & Plan: (OdpshbzwS08 self-inj.) Insomnia, epubtygkexonkgaqnxq55/06/202310/24/2023 Overview (06/02/2023): Last Assessment & Plan: (Continue current regimen.) Last Assessment & Plan: (Continuecurrent regimen.) Ybheylvjdfkl03Migraine without aura, intractable, without status befjbxmwtar18 Overview (06/02/2023): Last Assessment & Plan: Add atogepant 30, aiming for stopping TPM. If not on Mg citrate, change to this form. Last Assessment & Plan: Add atogepant 30, aiming for stopping TPM. If not on Mg citrate, change to this form. Chronic pain of both kneeservical paraspinal muscle spasm Overview (06/02/2023): Last Assessment & Plan: Incr rotatioanl stretches. Proceed to complete PT. Last Assessment & Plan: Incr rotatioanl stretches. Proceed to complete PT. Anxiety stateHyperlipidemiaMajor depressive ndkgfnnw41ericentral ffhagwk69 Obstructive sleep apnea tpileqsg88 Overview (06/02/2023): --- likely, given oral and pharyngeal anatomy, hypersomnia G47.10, noct desat G47.34. Last Assessment & Plan: Reorder PAPT. (Davie) Download before appts. Mitral valve vzkgwdaauresf77seudotumor xipquzn3806/10/2022 06/02/2023 Overview (06/02/2023): Last Assessment & Plan: (Continuecurrent regimen.) Redo MR brain. Last Assessment & Plan: (Continue current regimen.) Redo MR brain. Retroperitoneal zxgrbzluaa12arpal tunnel syndrome, bilateral upper limbs Overview (06/02/2023): --- causing hand weakness R29.898, pain. 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 pectoris (Primary Dx); Right arm pain07/10/2025Orders Only [facility] [address] [place] [facility] [place] [address] Aliyah Hammer MA Other chest pain (Primary Dx)07/10/2025Orders Only [facility] [address] [place] [facility] [place] [address] Aliyah Hammer MA Other chest pain (Primary Dx); Coronary artery disease, unspecified vessel or lesion type, unspecified whether angina present, unspecified whether cheesh-na or transplanted heart06/24/2025[facility] [address] [place] [facility] [address] Nicky Barry CNP Chest pain, unspecified type06/06/2025Telephone [facility] [address] [place] [facility] [place] [address] Bess Duran MA 05/23/2025 10:40 AM EDTOffice Visit [facility] [address] [place] [facility] [place] [address] Nicky Barry CNP Other chest pain (Primary Dx); History of coronary vasospasm; 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 pectoris; Benign hypertensive heart disease without congestive heart failure; Palpitations; Mixed hyperlipidemia; Cerebrovascular accident (CVA), unspecified mechanism (CMS/HCC)05/05/2025[facility] [address] [place] [facility] [address] Elias Pedersen MD NSTEMI (non-ST elevated myocardial infarction) (CMS/HCC)from Last 3 Months Family History Medical HistoryRelationNameCommentsHeart failureOtherRelationNameStatusComments FatherDeceasedMotherDeceasedOther Social History Tobacco UseTypesPacks/DayYears UsedDateSmoking Tobacco: NeverSmokeless Tobacco: Never Tobacco Cessation:Counseling Given: Not Answered Alcohol UseStandard Drinks/WeekCommentsNot Currently0 (1 standard drink = [...] and Gender Information ValueDate RecordedSex Assigned at UzqdgCaoduf23/27/2023 10:09 AM EDTLegal Sex Tuzwnj4702/05/2022 10:18 PM EDTGender UsbwwvawQybhaj91/27/2023 10:09 AM EDTSexual OrientationChoose not to ujhuoems88/27/2023 10:09 AM EDT Last Filed Vital Signs Vital SignReadingTime TakenCommentsBlood Pbmhoily144/6807/10/2025 10:58 AM EST Towox446207/10/2025 10:58 AM VVRLuikfmqyerq42.9 ??C (98.4 ??F)05/06/2023 12:00 PM EDTRespiratory Bkph974708/29/2022 9:06 AM ESTOxygen Ftqnkkqhic23%07/10/2025 10:58 AM ESTInhaled Oxygen Concentration--Zmqids28.2 kg (201 lb)07/10/2025 10:58 AM YCHQpfiyu309.6 cm (5' 6 )07/10/2025 10:58 AM ESTBody Mass Index32.44109/10/2024 10:58 AM EST Plan of Treatment DateTypeDepartmentCare Team (Latest Contact Info)Ttvdnpuzyfy65/18/2025 11:40 AM ESTOffice Visit [facility] [address] [place] [address] Nicky Barry, COURT BAILIFF OR SHERIFF [address] [place] [address] Health MaintenanceDue DateLast DoneCommentsCT Ylhthmjjmrwt33/03/1974Colonoscopy 1973Colorectal Cancer Xxltanwzp38/03/1974FIT-DNA1973FIT1973 FOBT1973Medicare Annual Wellness (AWV)1973 9245Zdmfleqcvubrl70/03/1974 Depression Edbrbxlvk50/03/1986Pneumococcal Vaccine: Pediatrics (0 to 5 Years) and At-Risk Patients (6 to 64 Years) (1 of 2 - PCV)1992Pap Smear1994 Adult Erwrked2110/11/1995Cervical Cancer Jsgbvaoky07/03/2004HPV/Hglset3610/11/2003 Zoster Vaccines (1 of 2)4COVID-19 Vaccine ( season) 611/, 10/31/2020, 10/04/2020, Additional history existsMammogram /Hepatitis B RhknfzazVfqpgnymu31/20/2009, 03/27/2008, 02/24/2008Influenza EjmdbdoBsmewqise14/30/2025, 05/19/2019, 07/05/2018, Additional history existsHIB VaccinesAged OutNo longer eligible based on patient's age to complete this topicHPV VaccinesAged OutNo longer eligible based on patient's age to complete this topicIPV VaccinesAged OutNo longer eligible based on patient's age to complete this topicMeningococcal B VaccineAged OutNo longer eligible based on patient's age to complete this topicMeningococcal VaccineAged OutNo longer eligible based on patient's age to complete this topic Rotavirus VaccinesAged OutNo longer eligible based on patient's age to complete this topic Medical Devices ImplantedTypeAreaManufacturerDevice IdentifierShelf Expiration DateModel / Serial / LotMonitor,Cardiac,Lux,Dxii+[facility] - [id number] - [id number] Implanted:Qty: 1 on 06/29/2023 by [facility] RecorderBosCanby Medical Center10/30/2024M312 / [id number] / Procedures Procedure NamePriorityDate/TimeAssociated DiagnosisCommentsECG 12 LEAD UNIT JGDBDCXJBXgqmjqo79/14/2025 11:35 AM EDT Other chest pain from Last 3 Months Results * ECG 12 lead unit performed (05/23/2025 11:35 AM EDT)Specimen (Source) Anatomical Location / LateralityCollection Method / VolumeCollection Time Received Time Narrative Authorizing ProviderResult TypeResult StatusMelmariana Barry [facility]ETTSECG ORDERABLES Final Result from Last 3 Months Insurance Advance Directives * Full Code (Latest Code Status on File) Date ActivatedDate InactivatedComments05/05/2023 2:00 PM05/06/2023 7:42 PM Care Teams Team MemberRelationshipSpecialtyStart DateEnd Date Mike Shaw DO [facility]11/04/22
--- OUTSIDE RECORDS SUMMARY | 2025-07-24 08:01 | XMS_ITS | Clinical Summary ---
Author Organization [facility] Address [address] [place] [address] Care Team Providers Care Local Operator Name Role Phone Mike Shaw Primary Care Provider Allergies No known active allergies Medications MedicationSigDispense QuantityRefillsLast FilledStart DateEnd DateStatus amLODIPine (NORVASC) 10 mg tablet Take 10 mg by mouth once daily.Active aspirin, enteric coated (ASPIRIN, ENTERIC COATED) 81 mg EC tablet Take 81 mg by mouth once daily.Active atorvastatin (LIPITOR) 80 mg tablet Take 80 mg by mouth once daily.Active baclofen (LIORESAL) 20 mg tablet Take 20 mg by mouth four times daily.Active busPIRone (BUSPAR) 7.5 mg tablet Take 7.5 mg by mouth twice daily.Active diltiazem CD (CARTIA XT) 180 mg 24 hr capsule Take 180 mg by mouth twice daily.Active clopidogrel (PLAVIX) 75 mg tablet Take 75 mg by mouth once daily.Active furosemide (LASIX) 20 mg tablet Take 20 mg by mouth as needed.Active isosorbide mononitrate ER (IMDUR) 60 mg 24 hr tablet Take 60 mg by mouth once daily.Active linaclotide (LINZESS) 145 mcg capsule Take 145 mcg by mouth DAILY (6 AM).Active nitroglycerin sublingual (NITROQUICK) 0.4 mg SL tablet Dissolve 0.4 mg under the tongue every 5 minutes as needed.Active Ranitidine HCl 150 mg capsule Take 150 mg by mouth twice daily.Active ranolazine ER (RANEXA) 500 mg 12 hr tablet Take 500 mg by mouth twice daily.Active vilazodone (VIIBRYD) 40 mg Take 40 mg by mouth daily with breakfast.Active ferrous sulfate 325 mg (65 mg iron) tablet Take 1 tablet by mouth daily with breakfast. 60 tablet Active Immunizations ImmunizationAdministration DatesNext Dueinfluenza (IIV3) vaccine, trivalent, PF (AFLURIA, FLUARIX, FLULAVAL, FLUVIRIN, FLUZONE)06/09/2016influenza (LAIV) vaccine, nasal, unspecified drivjuckhiq71/25/2015influenza (ccIIV4) vaccine, age 6+ mo, quadrivalent, PF (FLUCELVAX)07/05/2018 Social History Tobacco UseTypesPacks/DayYears UsedDateSmoking Tobacco: NeverSmokeless Tobacco: NeverAlcohol UseStandard Drinks/WeekCommentsYes0 (1 standard drink = 0.6 oz pure alcohol)occasionalArea Deprivation IndexAnswerDate RecordedNational Score (1- 100), lower number is lower riskNot on file07/18/2020State Score (1-10), lower number is lower riskNot on file07/18/2020Data from: https://www.neighborhoodatlas.medicine.[facility].edu/. Last address used for calculationNot on file07/18/2020CommentsNoSex and Gender Information ValueDate RecordedSex Assigned at BirthNot on fileLegal TxaJphxhs56/31/2015 9:09 AM EDTGender IdentityNot on fileSexual OrientationNot on file Last Filed Vital Signs Vital SignReadingTime TakenCommentsBlood Fgmxynlo900/6709 8:54 AM EDT Dsnbt7126 8:54 AM PQHTntnzbsnlox80.6 ??C (97.9 ??F)04/28/2019 8:54 AM EDTRespiratory Wpqj495804/28/2019 8:54 AM EDTOxygen Fxxsdbbvfy89%04/28/2019 8:54 AM EDTInhaled Oxygen Concentration--Chlmub457.2 kg (227 lb 8 oz)04/28/2019 8:54 AM VOIYdsfvc190.2 cm (5' 7.01 )04/28/2019 8:54 AM EDTBody Mass Index35.62 04/28/2019 8:54 AM EDT Plan of Treatment Health MaintenanceDue DateLast DoneCommentsAnxiety Kjmusuawu38/03/1992Depression Dgygvyflb64/03/1992HIV Rdwtwsayt92/03/1992Hepatitis C Hfvfmwsap88/03/1992 DTaP,Tdap,Td Vaccine (1 - Tdap)1992Cervical Cancer Ifphpsgmz97/03/1995 Mammogram Woosbiych64/03/2014CT Wjpqovounxpb23/03/2019Cologuard (FIT-DNA) 10/10/20181455Qnenpxmoouk36/03/2019Colorectal Cancer Mzzzjrhqz95/03/2019Fecal Occult Blood2018Lipid Mldtxvqpf25/03/1778Gqstiylviyspj85/03/2019Diabetes Rqbjftwun25Pneumococcal Vaccine: 50+ (1 of 1 - PCV)10/11/2023 Shingrix Vaccine (1 of 2)10/11/2023ovid-19 Vaccine (1 - 2024- season) 2025Influenza Vaccine (#1), 06/09/2016, 11/01/2014 Hepatitis B PdcvtjtNoasftsln24/20/2009, 03/27/2008, 02/24/2008 Insurance Care Teams Team MemberRelationshipSpecialtyStart DateEnd Date Mike Shaw DO [address] [place] [id number] PCP - GeneralFamily Medicine04/09/15
--- OUTSIDE RECORDS SUMMARY | 2025-07-24 08:01 | XMS_ITS | Clinical Summary ---
Author Organization [facility] Address [address] [place] [address], [address] [place] [address] Care Team Providers Care Steel Layout Worker Name Role Phone Unavailable Primary Care Provider Unavailabl e Social History Tobacco UseTypesPacks/DayYears UsedDateSmoking Tobacco: Never Assessed CommentsUnknownSex and Gender InformationValueDate RecordedSex Assigned at Not on fileLegal QhiYqdyfd11/10/2013 1:26 PM ESTGender IdentityNot on fileSexual OrientationNot on file Plan of Treatment Not on file
--- OUTSIDE RECORDS SUMMARY | 2025-07-24 08:01 | XMS_ITS | Encounter Summary ---
Author Organization [facility] Address [address] [place] [address] Care Team Providers Care Broadband Installer Name Role Phone Mike Shwa DO Primary Care Provider [phone] Reason for Referral * Imaging (Routine) - Pending ReviewSpecialtyDiagnoses / ProceduresReferred By ContactReferred To Contact Diagnoses Other chest pain Coronary artery disease, unspecified vessel or lesion type, unspecified whether angina present, unspecified whether anvik or transplanted heart Procedures CTA Chest W IV Contrast Emerson Santiago MD [address] [place] [address] Phone: tel: fax: Referral IDStatusReasonStart DateExpiration DateVisits RequestedVisits [id number] [id number] Encounter Details DateTypeDepartmentCare Team (Latest Contact Info)Qzrpogqdrul09/01/2025Orders Only [facility] [address] [place] [address] Aliyah Hammer MA Other chest pain (Primary Dx); Coronary artery disease, unspecified vessel or lesion type, unspecified whether angina present, unspecified whether anvik or transplanted heart Social History Tobacco UseTypesPacks/DayYears UsedDateSmoking Tobacco: NeverSmokeless [...] steady place to sleep or slept in co[place]elter (including now)?No05/05/2023Hunger Vital SignAnswerDate RecordedWithin the past 12 months, you worried that your food would run out before you got the money to buymore.Never true05/05/2023Ran Out of Food in the Last YearNot on file05/05/2023CommentsUnknownSex and Gender Information ValueDate RecordedSex Assigned at IlcobLbderk56/27/2023 10:09 AM EDTLegal Sex Dzrplw9202/05/2022 10:18 PM EDTGender JzvqvfucJlvrem56/27/2023 10:09 AM EDTSexual OrientationChoose not to njtzedxi46/27/2023 10:09 AM EDTdocumented as of this encounter Plan of Treatment DateTypeDepartmentCare Team (Latest Contact Info)Fafkbzdihcn13/18/2025 11:40 AM ESTOffice Visit [facility] [address] [place] [address] Nicky Barry, KINESEOLOGIST [address] [place] [address] NameTypePriorityAssociated DiagnosesOrder ScheduleCTA Chest W IV ContrastImaging Routine Other chest pain Coronary artery disease, unspecified vessel or lesion type, unspecified whether angina present, unspecified whether anvik or transplanted heart Expected: 07/10/2025, Expires: 07/10/2026reatinine, SerumLabRoutine Other chest pain Coronary artery disease, unspecified vessel or lesion type, unspecified whether angina present, unspecified whether anvik or transplanted heart Expected: 07/10/2025 (Approximate), Expires: 07/10/2026Lexiscan Stress Myocardial Perfusion ImagingCardiac ServicesRoutine Other chest pain Coronary artery disease, unspecified vessel or lesion type, unspecified whether angina present, unspecified whether anvik or transplanted heart Expected: 07/10/2025 (Approximate), Expires: 07/10/2027documented as of this encounter Visit Diagnoses Diagnosis Other chest pain- Primary Coronary artery disease, unspecified vessel or lesion type, unspecified whether angina present, unspecified whether anvik or transplanted heart documented in this encounter Care Teams Team MemberRelationshipSpecialtyStart DateEnd Date Mike Shaw DO PCP - General11/04/22documented as of this encounter
--- NOTE | 2025-07-24 08:02 | CT_ITS ---
The [address] [address] Patient Name: LEXII GRIFFIN MRN: [id number] date: 1975 Sex: F Assigned Patient Location: CT Current Patient Location: CT Accession/Order Number: [id number] Exam Date: 07/24/2025 08:10 Report Date: 07/24/2025 10:08 At the request of: REYNOLD HYDE MD Procedure: CT angio chest CTA CHEST WITH CONTRAST CLINICAL HISTORY: Right-sided chest pain radiating to the arm. Transplanted heart, coronary artery disease COMPARISON: None TECHNIQUE: Spiral images were obtained through the chest following intravenous administration of 100 mL of Omnipaque 350. Images were reviewed using both narrow and wide window settings. Sagittal, coronal and 3 D volume-rendered reconstructions were performed and reviewed. This CT exam was performed using one or more following dose reduction techniques: Automated exposure control, adjustment of the mA and/or kV according to patient size, or use of iterative reconstruction technique. FINDINGS: A loop recorder is visualized on the left. The heart is top normal in size. There is no pericardial effusion. There is no aortic aneurysm or obvious dissection given timing of contrast bolus. There is adequate opacification of the pulmonary arteries. There is minor respiratory motion. No definite emboli are identified. No pathologic lymphadenopathy is seen. Subtle thoracolumbar dextroscoliotic curvature and degenerative changes are visualized at the spine. There is a rounded sclerotic focus at the anterior aspect of the T7 vertebral body on the left. There is no infiltrate, effusion or discrete soft tissue nodules. No pneumothorax is seen. Limited cuts through the upper abdomen show no contributory abnormality. CT/CT angio chest IMPRESSION: NO CT EVIDENCE OF PULMONARY EMBOLISM. NO AORTIC ANEURYSM OR OBVIOUS DISSECTION. NO ACUTE INTRATHORACIC FINDINGS. Impression dictated by: Anita Whitley M.D. 07/24/2025 10:08 AM Dictation Location: [place] Electronically authenticated by: [id number] Y Date: 07/24/2025 10:08
--- OUTSIDE RECORDS SUMMARY | 2025-07-24 08:02 | XMS_ITS | Clinical Summary ---
Author Organization [facility] Address [address] [place] [address] Phone Care Team Providers Care Intelligence Officer Name Role Phone Mike Shaw DO Primary Care Provider Social History Tobacco UseTypesPacks/DayYears UsedDateSmoking Tobacco: Never Assessed CommentsUnknownSex and Gender InformationValueDate RecordedSex Assigned at Not on fileLegal MjsPopbsv92/26/2022 6:00 PM ESTGender IdentityNot on fileSexual OrientationNot on file Plan of Treatment Not on file Care Teams Team MemberRelationshipSpecialtyStart DateEnd Date Mike Shaw DO PCP - Jivzmnl87/12/20
--- OUTSIDE RECORDS SUMMARY | 2025-07-24 08:02 | XMS_ITS | Clinical Summary ---
Author Organization [facility] Address [address] [place] [address] Care Team Providers Care Sap Basis Consultant Name Role Phone Mike Shaw MD Primary Care Provider + [phone] Allergies No known active allergies Medications MedicationSigDispense QuantityRefillsLast FilledStart DateEnd DateStatus ALPRAZolam (Xanax) 0.25 MG tablet 1 (one) time each day at the same time.Active amLODIPine (Norvasc) 10 MG tablet Take 1 tablet by mouth in the morning.Active aspirin 81 MG EC tablet Take 1 tablet by mouth in the morning.Active atorvastatin (Lipitor) 80 MG tablet Take 1 tablet by mouth in the morning.Active busPIRone (Buspar) 7.5 MG tablet 1 (one) time each day at the same time.Active clopidogrel (Plavix) 75 MG tablet Take 1 tablet by mouth in the morning.10/27/2022ctive isosorbide mononitrate ER (Imdur) 60 MG 24 hr tablet Take 3 tablets by mouth in the morning.06/16/2022ctive Linzess 145 MCG capsule Take 1 capsule as needed by oral route for 30 days.01/02/2023ctive nitroglycerin (Nitrostat) 0.4 MG SL tablet DISSOLVE 1 TAB UNDER TONGUE FOR CHEST PAIN - IF PAIN REMAINS AFTER 5 MIN, CALL 911 AND REPEAT DOSE.MAX 3 TABS IN 15 DGGJOTJ2801/08/2023ctive ranolazine (Ranexa) 500 MG 12 hr tablet Take 1 tablet by mouth in the morning and 1 tablet before bedtime.04/28/2022 Active Viibryd 40 MG tablet Take 1 tablet every day by oral route for 90 days.06/27/2023Active eszopiclone (Lunesta) 3 MG tablet Take 1 tablet as needed by oral route for 30 days.Active acetaZOLAMIDE (Diamox) 250 MG tablet Indications:Pseudotumor cerebriTake 1 tablet (250 mg) by mouth in the morning and 1 tablet (250 mg) before bedtime. 60 tablet 3Active SUMAtriptan (Imitrex) 100 MG tablet Indications:Migraine without aura, intractable, without status migrainosus1 prn migraine. May repeat once in 2 hrs. Max 2/ADAM 4/wk 9 tablet 4Active tiZANidine (Zanaflex) 4 MG tablet Indications:Cervical paraspinal muscle spasm1/2- 1 tablet at bed. 30 tablet 5Active galcanezumab (Emgality) 120 MG/ML auto-injector Indications:Migraine without aura, intractable, without status migrainosusINJECT 1 MILLILITERS UNDER THE SKIN ONCE MONTHLY 1 mL 5Active modafinil (Provigil) 200 MG tablet Indications:Shift work sleep disorder1 tab QAM and 1/2 tab Qnoon 45 tablet 5Active cyanocobalamin (Vitamin B-12) 1000 MCG/ML injection Indications:Vitamin B12 deficiency (non anemic)INJECT 1 ML UNDER THE SKIN EVERY 30 DAYS 3 mL 5Active traZODone (Desyrel) 100 MG tablet Indications:Insomnia, psychophysiologicalTAKE 1 TABLET BY MOUTH AT BEDTIME 90 tablet 5Active Syringe/Needle, Disp, (B-D INTEGRA SYRINGE) 23G X 1 3 ML misc Indications:B12 deficiencyINJECT B12 EVERY MONTH 1 each 1105Active topiramate (Topamax) 200 MG tablet Indications:Migraine without aura, intractable, without status migrainosus1/2 tab AM 1 tab PM x1 wk then 1 tab BID 60 tablet 5Active methylPREDNISolone (Medrol Dospak) 4 MG tablets Indications:Migraine without aura, intractable, without status migrainosusFollow schedule on package instructions 21 tablet 5Active Active Problems ProblemNoted DateDiagnosed DatePain of left thumb05/09/2025 Assessment & Plan (05/11/2025 3:27 PM EDT): Pt may have referral to ortho when/if desired. Acute right-sided low back pain without rgkpuerh80/30/2025Lumbar paraspinal muscle spasm09/06/2024 Assessment & Plan (05/11/2025 3:27 PM EDT): (Continue current regimen, home PT.) Assessment & Plan (12/06/2024 2:11 PM EDT): (Continue current regimen, home PT.) Treat Your Own Back. Assessment & Plan (10/25/2024 2:09 PM EDT): MRI Lumbar Spine ([facility]). Inc Celecox to 100/100 Add baclofen 5/5 Orders: celecoxib (CeleBREX) 100 MG capsule; Take 1 capsule (100 mg) by mouth in the morning and 1 capsule (100 mg) before bedtime. baclofen (Lioresal) 5 MG tablet; Take 1 tablet (5 mg) by mouth in the morning and 1 tablet (5 mg) before bedtime. MR lumbar spine wo contrast; Future Assessment & Plan (09/06/2024 4:45 PM EST): XR L-s 6 v ([facility]). PT - [facility]. Ctproraapev78/28/2025 Overview (09/06/2024): --- diurnal, despite adequate treatment of NASRIN. Assessment & Plan (05/11/2025 3:27 PM EDT): --- diurnal, even with adequate treatment of NASRIN. (Continue current regimen.) Assessment & Plan (12/06/2024 2:11 PM EDT): --- diurnal, even with adequate treatment of NASRIN. (Continue current regimen.) Assessment & Plan (10/25/2024 2:09 PM EDT): --- diurnal, despite adequate treatment of NASRIN. (Continue current regimen.) Assessment & Plan (09/06/2024 4:45 PM EST): --- diurnal, despite adequate treatment of NASRIN. Change modafinil to 200 qam taken betw 0500 & 0600, then 100 mg taken around 1300 (pt may experiment with timing). After at least 1 w, may try 200 mg for the afternoon dose. If more effective and not interfering with sleep initiation, pt to call to make this permanent. Shift work sleep byphvcrf34/23/2024 Assessment & Plan (05/11/2025 3:27 PM EDT): (Continue current regimen, blue-blocking glasses @ 1900.) Assessment & Plan (12/06/2024 2:11 PM EDT): (Continue current regimen, blue-blocking glasses @ 1900.) Assessment & Plan (10/25/2024 2:09 PM EDT): (Continue current regimen, blue-blocking glasses @ 1900.) Assessment & Plan (09/06/2024 4:45 PM EST): (Continue current regimen, blue-blocking glasses @ 1900.) Orders: modafinil (Provigil) 200 MG tablet; 1 tab QAM and 1/2 tab @ 1300 Assessment & Plan (05/31/2024 3:16 PM EDT): (Continue current regimen, blue-blocking glasses @ 1900.) Assessment & Plan (03/01/2024 3:29 PM EDT): (Continue blue-blocking glasses @ 1900.) Add melatonin ER 5-10 @ 1999. Add modafinil 200 1/2-1 qam. Neck pain4Arachnoid cyst of pituitary gland06/23/2023 Assessment & Plan (06/23/2023 2:31 PM EST): MR brain c/s Gd, thin cuts through pituitary. Eval ?arachnoid cyst, any change in size? Migraine without aura, intractable, without status veavofusrsh62/06/2023 Assessment & Plan (05/11/2025 3:27 PM EDT): Mpred pack. Incr TPM to 100/200 x 1 w, then 200 bid. Orders: topiramate (Topamax) 200 MG tablet; 1/2 tab AM 1 tab PM x1 wk then 1 tab BID methylPREDNISolone (Medrol Dospak) 4 MG tablets; Follow schedule on package instructions Assessment & Plan (12/06/2024 2:11 PM EDT): (Continue current regimen.) Assessment & Plan (10/25/2024 2:09 PM EDT): (Continue current regimen.) Assessment & Plan (09/06/2024 4:45 PM EST): (Continue current regimen.) Assessment & Plan (05/31/2024 3:16 PM EDT): Pred taper. Continue remaining meds. Long discussion re: isosorbide. (But pt has done very poorly off med in the past.) If ADAM freq begins to creep up after pred taper, pt may call for incr TPM to 100/200. Assessment & Plan (03/01/2024 3:15 PM EDT): Incr atogepant to 60. Assessment & Plan (12/08/2023 3:28 PM EDT): Incr deyanira to 60. Assessment & Plan (09/08/2023 3:06 PM EST): Resubmit for atogepant 30. (3rd req) Or did we get a denial letter? Assessment & Plan (06/23/2023 2:29 PM EST): Add atogepant 30. (2nd req). Then consider stopping TPM. If not on Mg citrate, change to this form. Assessment & Plan (03/17/2023 1:24 PM EDT): Add atogepant 30, aiming for stopping TPM. If not on Mg citrate, change to this form. Insomnia, nkdfozxyjjnauxdreea63/06/2023 Assessment & Plan (05/11/2025 3:27 PM EDT): (Continue current regimen.) Assessment & Plan (12/06/2024 2:11 PM EDT): (Continue current regimen.) Assessment & Plan (10/25/2024 2:09 PM EDT): (Continue current regimen.) Assessment & Plan (09/06/2024 4:45 PM EST): (Continue current regimen.) Assessment & Plan (05/31/2024 3:16 PM EDT): (Continue current regimen.) Assessment & Plan (03/01/2024 3:29 PM EDT): (Continue current regimen.) Assessment & Plan (12/08/2023 3:31 PM EDT): (Continue current regimen.) Assessment & Plan (09/08/2023 3:08 PM EST): (Continue current regimen.) Assessment & Plan (06/23/2023 2:32 PM EST): (Continue current regimen.) Assessment & Plan (03/17/2023 1:29 PM EDT): (Continue current regimen.) Pseudotumor deguwcq1403/15/2023 Assessment & Plan (05/11/2025 3:27 PM EDT): Funduscopic exam each visit. Assessment & Plan (12/06/2024 2:11 PM EDT): Funduscopic exam each visit. Assessment & Plan (10/25/2024 2:09 PM EDT): Funduscopic exam each visit. Assessment & Plan (09/06/2024 4:45 PM EST): Funduscopic exam each visit. Assessment & Plan (03/01/2024 3:29 PM EDT): (q.v.) Assessment & Plan (12/08/2023 3:30 PM EDT): (q.v.) Assessment & Plan (09/08/2023 3:07 PM EST): (Continue current regimen.) Assessment & Plan (03/17/2023 1:24 PM EDT): (Continue current regimen.) Redo MR brain. B12 dmmfnucqxt83/06/2023 Assessment & Plan (05/11/2025 3:27 PM EDT): (Continue B12 self-inj.) Orders: Syringe/Needle, Disp, (B-D INTEGRA SYRINGE) 23G X 1 3 ML misc; INJECT B12 EVERY MONTH Assessment & Plan (12/06/2024 2:11 PM EDT): (Continue B12 self-inj.) Assessment & Plan (10/25/2024 2:09 PM EDT): (Continue B12 self-inj.) Assessment & Plan (09/06/2024 4:45 PM EST): (Continue B12 self-inj.) Assessment & Plan (05/31/2024 3:16 PM EDT): (Continue B12 self-inj.) Assessment & Plan (03/01/2024 3:29 PM EDT): (Continue B12 self-inj.) Assessment & Plan (12/08/2023 3:30 PM EDT): (Continue B12 self-inj.) Assessment & Plan (09/08/2023 3:07 PM EST): (Continue B12 self-inj.) Assessment & Plan (06/23/2023 2:32 PM EST): (Continue B12 self-inj.) Assessment & Plan (03/17/2023 1:29 PM EDT): (Continue B12 self-inj.) Carpal tunnel syndrome, pyvoyqqif26/06/2023 Overview (03/15/2023): --- causing hand weakness R29.898, pain. Assessment & Plan (05/11/2025 3:27 PM EDT): (Continue splints B nightly.) Assessment & Plan (12/06/2024 2:11 PM EDT): (Continue splints B nightly.) Assessment & Plan (10/25/2024 2:09 PM EDT): (Continue splints B nightly.) Assessment & Plan (09/06/2024 4:45 PM EST): (Continue splints B nightly.) Assessment & Plan (05/31/2024 3:16 PM EDT): (Continue splints B nightly.) Assessment & Plan (12/08/2023 3:29 PM EDT): (Continue splints B nightly.) Assessment & Plan (09/08/2023 3:07 PM EST): (Continue splints B.) Assessment & Plan (06/23/2023 2:33 PM EST): (Continue splints.) Assessment & Plan (03/17/2023 1:27 PM EDT): (Continue splints.) Gbmtgnivuywb65/06/2023erebral uggllksxkg30/06/2023Cervical paraspinal muscle spasm12/29/2022 Assessment & Plan (05/11/2025 3:27 PM EDT): (Continue current regimen, home PT.) Assessment & Plan (10/25/2024 2:09 PM EDT): (Continue home PT mateo rotation as prev discussed.) Assessment & Plan (09/06/2024 4:45 PM EST): (Continue home PT mateo rotation as prev discussed.) Assessment & Plan (05/31/2024 3:16 PM EDT): (Continue home PT mateo rotation as discussed.) Assessment & Plan (03/01/2024 3:15 PM EDT): (Continue home PT as discussed.) Assessment & Plan (12/08/2023 3:28 PM EDT): Incr home PT! as discussed. Formal PT. Assessment & Plan (09/08/2023 3:07 PM EST): (Continue home PT mateo rotational stretches.) Assessment & Plan (06/23/2023 2:34 PM EST): (Continue home PT mateo rotational stretches.) Assessment & Plan (03/17/2023 1:31 PM EDT): Incr rotatioanl stretches. Proceed to complete PT. Neck wrhkcefzk98/22/2023OSA (obstructive sleep apnea)06/10/2022 Overview (03/15/2023): --- likely, given oral and pharyngeal anatomy, hypersomnia G47.10, noct desat G47.34. Assessment & Plan (05/11/2025 3:27 PM EDT): Must restart PAP! Nontx is worsening migraines! Multiple prior reviews of complications from untreated NASRIN, including incr BP, arrhythmias, incr glucose, 5x higher risk of stroke & CO. Download before appts. Assessment & Plan (12/06/2024 2:11 PM EDT): Use PAP even when sleeping on couch! Multiple prior reviews of complications from untreated NASRIN, including incr BP, arrhythmias, incr glucose, 5x higher risk of stroke & CO. Download before appts. Assessment & Plan (10/25/2024 2:09 PM EDT): Use PAP even when sleeping on couch! Again reviewed complications from untreated NASRIN, including incr BP, arrhythmias, incr glucose, 5x higher risk of stroke & CO. Download now and before appts. Not received Assessment & Plan (09/06/2024 4:45 PM EST): Use PAP even when sleeping on couch! Again reviewed complications from untreated NASRIN, including incr BP, arrhythmias, incr glucose, 5x higher risk of stroke & CO. Download before appts. Assessment & Plan (05/31/2024 3:16 PM EDT): Restart PAP as soon as able. Download before appts. Assessment & Plan (03/21/2024 9:14 PM EDT): (Continue PAP.) Incr sleep time to 7 h min every night (e.g. [id number]). Download before appts. Qz-rc-id-request PAPT from Nov ([facility]) incl data sheets. <8>Incr CPAP to 12. Download 1 mo. Assessment & Plan (12/08/2023 3:23 PM EDT): Use PAP more consistently! Download before appts. Ck-wg-vvxdbem PAPT from Nov ([facility]) incl data sheets. Assessment & Plan (09/08/2023 3:09 PM EST): Get PAPT results - never sent to us. (Just logged in [employer]). * Reminder - check on this next week. (Continue PAP.) Download before appts (incl now, none rec'd). Assessment & Plan (06/23/2023 2:34 PM EST): Reorder PAPT. ([facility]) (2nd req) Rev'd need for supplies. Pt to call DME. Resend whichever order DME needs. Download before appts. Assessment & Plan (03/17/2023 1:30 PM EDT): Reorder PAPT. ([facility]) Download before appts. Neurocardiogenic utzptwc6106/10/2022 Overview (03/15/2023): --- causing loss of consciousness R40.20. 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 Please follow up & consider implanting a new loop recorder. Encounters DateTypeDepartmentCare RgyqYudkcwcvsja68/30/2025 10:15 AM EDTOffice Visit [facility] [address] [address] Yannick Marcelo MD NASRIN (obstructive sleep apnea) (Primary Dx); Migraine without aura, intractable, without status migrainosus ; Pain of left thumb; Hypersomnia; B12 deficiency; Carpal tunnel syndrome, bilateral; Pseudotumor cerebri; Shift work sleep disorder; Insomnia, psychophysiological; Cervical paraspinal muscle spasm; Lumbar paraspinal muscle spasm05/09/2025amboo flowsheet [facility] [address] [place] [address] Yannick Marcelo MD 05/09/20256427Abkqeh69/26/2025Refill [facility] [address] [address] Yannick Marcelo MD Migraine without aura, intractable, without status migrainosus ; Insomnia, psychophysiologicalfrom Last 3 Months Family History Medical HistoryRelationNameCommentsHeart diseaseFatherHypertensionMotherBreast cancerOthersiblingsHeart diseaseOthersiblingsRelationNameStatusCommentsFather DeceasedMotherAliveOthersiblings Social History Tobacco UseTypesPacks/DayYears UsedDateSmoking Tobacco: Never Tobacco Cessation:Counseling Given: Not Answered Alcohol UseStandard Drinks/WeekCommentsNever0 (1 standard drink = 0.6 oz pure alcohol)CommentsUnknownSex and Gender InformationValueDate RecordedSex Assigned at BirthNot on fileLegal EukTxwaib74/15/2023 7:06 PM EDTGender Identity Not on fileSexual OrientationNot on file Last Filed Vital Signs Vital SignReadingTime TakenCommentsBlood Vlbunlfk149/7104 1:39 PM EDT Duceh0841 1:39 PM EDTTemperature--Respiratory Rate--Oxygen Saturation-- Inhaled Oxygen Concentration--Cknymg22.6 kg (213 lb)05/09/2025 10:39 AM EDT Xqblpj922.6 cm (5' 6 )05/09/2025 10:39 AM EDTBody Mass Index34.3809 10:39 AM EDT Plan of Treatment DateTypeDepartmentCare Team (Latest Contact Info)Hlaexqwndcv17/06/2026 12:00 PM ESTOffice Visit [facility] [address] [place] [address] Yannick Marcelo MD [address] [facility] [address] [place] [address] Health MaintenanceDue DateLast DoneCommentsCT Lycrlwnkophv45/03/1974Colonoscopy 1973Colorectal Cancer Ontzotjdm64/03/1974FIT-DNA1973FIT1973 FOBT1973 5138Nfuegjmaxiirz94/03/3828Olppfyttr15/28/205613/, 03/16/2018 COVID-19 Vaccine ( season)611/, 10/31/2020, 10/04/2020, Additional history existsPap Smear/ervical Cancer Wfsldhfpq40/02/2029HPV/Aegggu45/09/2023Influenza Vaccine Nnmukgons10/30/2025, 05/19/2019, 07/05/2018, Additional history exists Pneumococcal Vaccine: Pediatrics (0 to 5 Years) and At-Risk Patients (6 to 64 Years)Aged OutNo longer eligible based on patient's age to complete this topic Insurance Care Teams Team MemberRelationshipSpecialtyStart DateEnd Date Mike Shaw MD [address], [facility] [place] [address] PCP - GeneralFamily Medicine12/29/22
--- OUTSIDE RECORDS SUMMARY | 2025-07-24 08:02 | XMS_ITS | Clinical Summary ---
Author Organization [address] tem Address [id number] [address] [place] [address] Care Team Providers Care Coating Inspector Name Role Phone Mike Shaw DO Primary Care Provider Allergies No known active allergies Medications MedicationSigDispense QuantityRefillsLast FilledStart DateEnd DateStatus aspirin 81 mg daily.Active isosorbide mononitrate (IMDUR) 60 mg 24 hr tablet Take 3 tablets (180 mg total) by mouth daily.Active cyanocobalamin (VITAMIN B-12) 1,000 mcg/mL injection 09/17/2021ctive topiramate (TOPAMAX) 100 mg tablet Active glucosamine-chondroitin 500-400 mg tablet Take 1 tablet by mouth in the morning.Active colchicine (COLCRYS) 0.6 mg tablet Take 1 tablet (0.6 mg total) by mouth in the morning. pain.Active metoprolol succinate XL (TOPROL XL) 25 mg 24 hr tablet Take 1 tablet (25 mg total) by mouth in the morning.Active SUMAtriptan (IMITREX) 100 mg tablet Take 1 tablet (100 mg total) by mouth once as needed.03/29/2024ctive modafiniL (PROVIGIL) 200 mg tablet Take 1 tablet (200 mg total) by mouth in the morning.03/01/2024ctive EMGALITY PEN 120 mg/mL pen injector Inject 240 mg under the skin.05/09/2024ctive dilTIAZem CD (CARDIZEM CD) 180 mg 24 hr capsule take 1 capsule by mouth 2 times a day 180 capsule 310/28/2024Active hydrOXYzine (ATARAX) 50 mg tablet Indications:Anxiety stateTAKE ONE TABLET BY MOUTH EVERY 8 HOURS NEEDED FOR ITCHING, ALLERGIES OR ANXIETY 30 tablet 5Active tiZANidine (ZANAFLEX) 4 mg tablet 1/2- 1 tablet at bed.5Active vilazodone (VIIBRYD) 40 mg tablet TAKE 1 TABLET BY MOUTH DAILY 90 tablet 5Active atorvastatin (LIPITOR) 80 mg tablet TAKE 1 TABLET BY MOUTH EVERY MORNING 90 tablet 5Active LINZESS 145 mcg capsule TAKE 1 CAPSULE BY MOUTH EVERY MORNING 30 capsule 5Active ALPRAZolam (XANAX) 0.5 mg tablet Indications:Situational mixed anxiety and depressive disorderTake 1 tablet (0.5 mg total) by mouth daily as needed for anxiety. 30 tablet 5Active semaglutide, weight loss, (WEGOVY) 0.25 mg/0.5 mL pen injector Inject 0.5 mL (0.25 mg total) under the skin every 7 days.5Active nitroglycerin (NITROSTAT) 0.4 MG SL tablet Take 1 tablet (0.4 mg total) by mouth every 5 (five) minutes as needed for chest pain. DISSOLVE 1 TAB UNDER TONGUE FOR CHEST PAIN - IF PAIN REMAINS AFTER 5 MIN CALL 911 AND REPEAT DOSE MAX 3 TABS IN 15 MINUTES 25 tablet 5Active ranolazine (RANEXA) 500 mg 12 hr tablet TAKE 1 TABLET BY MOUTH EVERY MORNING AND 1 TABLET AT BEDTIME 180 tablet 5Active busPIRone (BUSPAR) 7.5 mg tablet TAKE 1 TABLET BY MOUTH 2 TIMES A DAY - IN THE MORNING AND BEFORE BEDTIME 180 tablet 5Active celecoxib (CeleBREX) 100 mg capsule Indications:Primary osteoarthritis of both kneesTAKE 1 CAPSULE BY MOUTH 2 TIMES A DAY NEEDED FOR PAIN 60 capsule 5Active Active Problems ProblemNoted DateDiagnosed DateShift work sleep scwancln14/23/2024 Overview (05/16/2024): Last Assessment & Plan: (Continue blue-blocking glasses @ 1900.) Add melatonin ER 5-10 @ 1999. Add modafinil 200 1/2-1 qam. Umbilical hernia, yijpogsvaneb69/05/2024cute non-ST segment elevation myocardial gbnihjrwbu45/29/2023rachnoid cyst of pituitary gland06/23/2023 Overview (07/08/2023): Last Assessment & Plan: MR brain c/s Gd, thin cuts through pituitary. Eval ?arachnoid cyst, any change in size? Cerebrovascular accident (CVA)06/02/2023enign hypertensive heart disease without congestive heart jxxnqjs7004/05/2023 Overview (05/11/2023): Last Assessment & Plan: stable B12 psgsdjaqet75/06/2023 Overview (05/11/2023): Last Assessment & Plan: (VkhjmzfqU11 self-inj.) Cerebral migkiaqbeg56/06/2023Insomnia, sftizohpisukaahqkgj52/06/2023 Overview (05/11/2023): Last Assessment & Plan: (Continuecurrent regimen.) Qdsqvgebmblo03/06/2023Migraine without aura, intractable, without status tgtarnyktex90/06/2023 Overview (05/16/2024): Last Assessment & Plan: Add atogepant 30, aiming for stopping TPM. If not on Mg citrate, change to this form. Last Assessment & Plan: Incr atogepant to 60. Chronic pain of both knees02/26/2023ervical paraspinal muscle spasm12/29/2022 Overview (05/16/2024): Last Assessment & Plan: Incr rotatioanl stretches. Proceed to complete PT. Last Assessment & Plan: (Continue home PT as discussed.) Anxiety state06/10/2022seudotumor svgnang1406/10/2022 Overview (05/11/2023): Last Assessment & Plan: (Continuecurrent regimen.) Redo MR brain. 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 caputo as scheduled - continue aspirin 81 mg daily, amlodipine 10 mg daily, Lipitor 80 mg daily. her stent is from over a year ago and she continues to be on Plavix, discussed ok to d/c plavix -has hx of coronary vasospams, ct imdur/ranexa Onpqgszmagxike80/01/2022Major depressive hasolomy01/01/6554Zwukwpal76/01/2022 Mitral valve txopypmpblpbq19/01/2022OSA (obstructive sleep apnea)06/10/2022 Overview (05/16/2024): --- likely, given oral and pharyngeal anatomy, hypersomnia G47.10, noct desat G47.34. Last Assessment & Plan: (Continue PAP.) Incr sleep time to 7 h min every night (e.g. [id number]). Download before appts. Zp-ps-vu-request PAPT from Nov ([employer]) incl data sheets. <03/21>Incr CPAP to 12. Download 1 mo. Pericentral zzjwyfw4806/10/2022rinzmetal's jbeixw772Retroperitoneal ivynkmitdx68/01/2022Neurocardiogenic dlvqslj4906/10/2022 Overview (05/11/2023): --- causing loss of consciousness R40.20. 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 Please follow up & consider implanting a new loop recorder. Gastroesophageal reflux urxhync48/01/2022Bilateral carpal tunnel syndrome 0247Kvmapsdtdf88/23/2019Antral nmcqrhiiu35/23/2019Iron deficiency anemia 05/20/2019Lumbosacral spondylosis without sqhyqxxhli70/15/2019 Overview (11/22/2018): Added automatically from request for surgery [id number] Herniation of lumbar intervertebral disc with qqtuvxmjslalj71/21/2019Obesity 02/24/20172096Pfpwuafzdjl54/04/8415Jtijzsrvuysw97/07/Essential rinzuxgaqmih94cute coronary znqrivch36/01/2011 Resolved Problems ProblemNoted DateDiagnosed DateResolved DateObesity, urynok46/09// Encounters DateTypeDepartmentCare BoytCldshrevtpd07/16/2025Refill [facility] Internal [facility] - Family Medicine [address] [place] [address] Mike Shaw, DO Primary osteoarthritis of both knees05/12/2025Refill [facility] Medicine - Family Medicine [address] [place] [address] Mike Shaw DO 05/09/2025 2:15 PM EDTOffice Visit [facility] [address] [place] [address] Mike Shaw, DO Situational mixed anxiety and depressive disorder (Primary Dx); Flu vaccine need; 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 pectoris; Essential qsfxiwlkpftv02/28/5626Kmuyav52/16/2025[facility] [address] [place] [address] Mike Shaw, DO from Last 3 Months Immunizations ImmunizationAdministration DatesNext DueCOVID-19, mRNA, LNP-S, PF, 30mcg/0.3mL Dose10/31/2020,2020,10/04/2020Hepatitis B010/27/2008,03/27/2008,02/24/2008 Influenza (IM) Preservative Free06/09/2016Influenza, Im Flucelvax (Pf)05/09/2025 Influenza, Injectable, MDCK, Ybypusvetzdm81/10/2019Influenza, Injectable, Mdck, Preservative Free, Quad07/05/2018Influenza, Injectable, Gztqpgswanfs65/07/2016 Influenza, Luqywjbkmvp08/25/2015 Family History Medical HistoryRelationNameCommentsHeart failureFatherHeart diseaseMaternal GrandfatherHeart diseaseMaternal GrandmotherHyperlipidemiaMotherHypertension MotherBreast cancerSisterRelationNameStatusCommentsFatherDeceasedMaternal GrandfatherMaternal GrandmotherMotherDeceasedSister Social History Tobacco UseTypesPacks/DayYears UsedDateSmoking Tobacco: NeverSmokeless Tobacco: Never Tobacco Cessation:Counseling Given: Not Answered Alcohol UseStandard Drinks/WeekCommentsYes0 (1 standard drink = 0.6 oz pure alcohol)sociallySocial Connection and Isolation PanelAnswerDate RecordedIn a typical week, how many times do you talk on the phone with family, friends, or neighbors?More than three times a week12/01/2022How often do you get together with friends or relatives?Twice a week12/01/2022How often do you attend yazidi or roman catholic services?More than 4 times per year3Do you belong to any clubs or organizations such as yazidi groups, unions, fraternal or athletic shelbi ups, or school groups?Yes12/01/2022How often do you attend meetings of the clubs or organizations you belong to?More than 4 times per year3Are you , , , , never , or living with a partner? Fqitjju6412/01/2022UDIT-CAnswerDate RecordedQ1: How often do you have a drink containing alcohol?Never12/01/2022Q2: How many drinks containing alcohol do you have on a typical day when you are drinking?Patient does not drink12/01/2022Q3: How often do you have six or more drinks on one occasion?Never12/01/2022Overall Financial Resource Strain (CARDIA)AnswerDate RecordedHow hard is it for you to pay for the very basics like food, housing, medical care, and heating?Not hard at all05/07/2025PHQ-2AnswerDate RecordedTotal Uuzln472[facility] [place] of Occup[facility] - Occupational Stress QuestionnaireAnswerDate RecordedDo you feel stress - tense, restless, nervous, or anxious, or unable to sleep at night because yourmind is troubled all the time - these days?To some extent 12/01/2022Exercise Vital SignAnswerDate RecordedOn average, how many days per week do you engage in moderate to strenuous exercise (like a brisk walk)?3 days 12/01/2022On average, how many minutes do you engage in exercise at this level? 30 min12/01/2022RAPARE - TransportationAnswerDate RecordedIn the past 12 months, has lack of transportation kept you from medical appointments or from getting medications?No05/07/2025In the past 12 months, has lack of transportation kept you from meetings, work, or from getting things needed for daily living?05/07/2025Housing InstabilityAnswerDate RecordedAre you worried or concerned that in the next two months you may not have stable housing that you own, rent or stay in as a part of a household?No05/07/2025hildcareAnswer Date RecordedDo problems getting residential child care counselor make it difficult for you to work or study?No12/01/2022EmploymentAnswerDate RecordedDo you need help finding a local career center and/or a training program?12/01/2022Hunger ScreeningAnswerDate RecordedWithin the past 12 months we worried whether our food would run out before we got money to buy more.Never True05/07/2025Within the past 12 months the food we bought just didn't last and we didn't have money to get more.Never True05/07/2025Purpose - LifeAnswerDate RecordedI have a purpose and direction in my life.Strongly Agree3CommentsNoSex and Gender Information ValueDate RecordedSex Assigned at BirthNot on fileLegal XebRexbdl27/06/2015 11:47 AM EDTGender IdentityNot on fileSexual OrientationNot on file Last Filed Vital Signs Vital SignReadingTime TakenCommentsBlood Nggxybay826/70005/09/2025 2:33 PM EDT Jzxdt121805/09/2025 2:33 PM OVEJqtdxtzeqxg79.8 ??C (98.2 ??F)05/09/2025 2:33 PM EDTRespiratory Phfd700905/09/2025 2:33 PM EDTOxygen Nnxxietfsl60%05/09/2025 2:33 PM EDTInhaled Oxygen Concentration--Nmuxej73.7 kg (211 lb)05/09/2025 2:33 PM EDT Xiqgst555.6 cm (5' 5.98 )05/09/2025 2:33 PM EDTBody Mass Index34.0705/09/2025 2:33 PM EDT Plan of Treatment DateTypeDepartmentCare Team (Latest Contact Info)Gzwbrdrhvch25/30/2025 2:00 PM ESTOffice Visit [facility] [address] [address] Mike Shaw, DO [address], [place] [address] Health MaintenanceDue DateLast DoneCommentsDTaP,Tdap and Td Vaccines (1 - Tdap) 1992Zoster (Shingles) Vaccine (1 of 2)10/11/20237836Mpbgucyow85/28/2025 10/08/2023, 03/16/2018COVID-19 Vaccine (2024- season)/, 2020, 10/04/2020, Additional history existsAdult BMI Follow Up Plan Statin Use: Ztwvbpzrdsrdyy21/08/202609/dult BMI Mksekxsqv05Depression Lqiemwnni99Tobacco Oslnbjknv38Pap Smear/09/2023, 11/10/2023 Cqlqisovmvy16Influenza ZnvmfmaMxxdnnnce63/30/2025, 05/19/2019, 07/05/2018, Additional history exists Medical Devices ImplantedTypeAreaManufacturerDevice IdentifierShelf Expiration DateModel / Serial / LotMesh 3.3x2.3mm Plstr Clgn Symbotex 9cm Comp Mfl Babsr Flm - Sna - [id number] Implanted:Qty: 1 on 08/18/2023 by Sixto Terry DO at [facility]11/07/2026SYM9 / NA / [id number] Implant-06/29/2023 Implanted:06/29/2023 (Quantity not on file)Other ImplantBoston Scientificlux dx Cardiac Stents Procedures Procedure NamePriorityDate/TimeAssociated DiagnosisCommentsHIGH RISK HPV W/TONY Jduhbff9911/10/2023 5:23 AM EDT Smear, vaginal, as part of routine gynecological examination MAMM SCREENING BILATERAL W VCCRgckkrx63/29/2024 3:48 PM EST Screening mammogram for breast cancer HM QSPDHVVVTDYJzyzthk30/23/2019from Last 3 Months or Most Recently Relevant to Health Maintenance Results * High risk HPV w/tony (11/10/2023 5:23 AM EDT)ComponentValueRef RangeTest MethodAnalysis TimePerformed AtPathologist SignatureHpv specimen typeThinPrep 11/11/2023 5:24 AM EDTFBALDWIN PARK HOSPITALHpv 16NegativeNegative^Negative 11/11/2023 2:08 PM [facility] LABHpv 18Negative Negative^Hrubqpsx65/03/2024 2:08 PM [facility] LABOther high risk hpvNegativeNegative^Ygqseidk14/03/2024 2:08 PM [facility] LABComment: HPV types 31,33,35,39,45,52,56,58,59,66 and 68 DNA were undetectable. Specimen (Source)Anatomical Location / LateralityCollection Method / Volume Collection TimeReceived ExnbLHNZE63/02/2024 5:23 AM EDT11/11/2023 5:24 AM EDT Narrative Authorizing ProviderResult TypeResult StatusCorili ARMAS BLOOD ORDERABLESFinal ResultPerforming OrganizationAddressCity/State/ZIP CodePhone Number SUND[facility] [address], [place] [address] [facility] [address], [address] [place] [address] * Mammography screening bilateral with CAD (10/08/2023 3:48 PM EST)Anatomical RegionLateralityModalityBreastBilateralMammographySpecimen (Source)Anatomical Location / LateralityCollection Method / VolumeCollection TimeReceived Time 10/08/2023 3:52 PM EST Addenda Addendum by Imer Mendieta DO on 12/22/2023 11:56 AM EDT *ADDENDUM*Exam was reevaluated for peer review process. ??I agree with the initial interpretation. Finalized by Imer Mendieta DO on 12/22/2023 11:56 AM 1 b RETURN TO [place] Narrative 10/08/2023 3:57 PM EST EXAM: MAMM SCREENING BILATERAL W CAD, 10/08/2023 2:50 PM CLINICAL INDICATIONS: Screening, Screening mammogram for breast cancer. COMPARISON: 03/16/2018. TECHNIQUE: Bilateral digital tomosynthesis MLO and CC views of the breasts were obtained, with creation of synthetic 2D views. Computer aided detection was utilized. FINDINGS: There are scattered areas of fibroglandular density. Left-sided cardiac event monitor There are no suspicious masses, calcifications, or areas of architectural distortions. IMPRESSION: No mammographic evidence of malignancy. ?? BI-RADS: BI-RADS 1 - Negative Recommendation: ??Return to annual screening mammography.. Finalized by Estevan Beltran MD on 10/08/2023 3:57 PM 1 b RETURN TO [place] Procedure Note Estevan Beltran MD / Imer Mendieta, DO - 10/08/2023 EXAM: MAMM SCREENING BILATERAL W CAD, 10/08/2023 2:50 PM CLINICAL INDICATIONS: Screening, Screening mammogram for breast cancer. COMPARISON: 03/16/2018. TECHNIQUE: Bilateral digital tomosynthesis MLO and CC views of the breasts wereobtained, with creation of synthetic 2D views. Computer aided detectionwas utilized. FINDINGS: There are scattered areas of fibroglandular density. Left-sided cardiac event monitor There are no suspicious masses, calcifications, or areas of architectural distortions. IMPRESSION: No mammographic evidence of malignancy. BI-RADS: BI-RADS 1 - Negative Recommendation: Return to annual screening mammography.. Finalized by Estevan Beltran MD on 10/08/2023 3:57 PM 1 b RETURN TO [place] Authorizing ProviderResult TypeResult StatusBecca Delaney MDIMEleuterio MAMMOGRAPHY ORDERABLESEdited Result - Final * HM COLONOSCOPY (06/01/2019) Narrative Authorizing ProviderResult TypeResult StatusDenmiguel Mcclellan Furlopuja DOHEALTH MAINTENANCEFinal ResultPerforming OrganizationAddressCity/State/ZIP CodePhone Number MANUALLY TRANSCRIBED RESULTS from Last 3 Months or Most Recently Relevant to Health Maintenance Insurance Advance Directives * Full Code (Latest Code Status on File) Date ActivatedDate InactivatedComments08/14/2023 2:43 AM08/14/2023 7:50 PM Care Teams Team MemberRelationshipSpecialtyStart DateEnd Date Mike Shaw DO [address], [place] [address] [facility]
--- NOTE | 2025-07-24 08:35 | NM_ITS ---
Patient Name: LEXII GRIFFIN MR#: [id number] : 1975 Exam Date: 07/24/2025 Ordering Doctor: REYNOLD HYDE RADIOLOGY REPORT PROCEDURE: NM CHRIS PERF SPECT REST STR COMPARISON: None. INDICATIONS: CHEST PAIN, CORONARY ARTERY DISEASE TECHNIQUE: Exam Description: Stress/Rest one day protocol gated SPECT Rest Imagin.8 mCi Tc-99m Cardiolite IV on 07/24/2025 Stress Imaging 30.4 mCi Tc-99m Cardiolite IV on 07/24/2025 Exercise Protocol: 0.4 mg Lexiscan given IV Heart Rate (bpm): Rest: 52 Max: 86 PMHR: 50 Blood Pressure: Rest: 113/73 Max: 131/78 Symptoms: Rest and peak stress ECG findings were pending, and the exercise portion of the study was pending per attending physician [facility]. For more details, please see separate cardiac stress test report. FINDINGS: QUALITY OF STUDY: Adequate PERFUSION DEFECT: LOCATION: Anteroapical SIZE: Small SEVERITY: Mild TYPE: Fixed, likely representing physiological apical thinning and soft tissue attenuation WALL MOTION: Normal wall motion LV SIZE: 100 mL. TID / TCD: 0.8 LVEF: Calculated EF 72%. SUMMARY: Myocardial perfusion imaging study is normal CONCLUSION: 1. Myocardial perfusion is normal with soft tissue attenuation 2. Global left ventricular systolic function is normal 3. No significant transient ischemic dilatation Dictated by: Leighann Medina M.D. on 07/24/2025 at 14:18 Approved by: Leighann Medina M.D. on 07/24/2025 at 14:20
--- NOTE | 2025-07-24 10:30 | PC.NURSE ---
Nursing Note Cardiac Stress Test Reviewed: Medication, allergies and patient history reviewed. Stress Test: [x]? Patient tolerated stress test well. [ ]? Patient unable to tolerate walking on treadmill. Switched to Lexiscan stress test. [x ]? No chest pain noted per patient [ ]? Chest pain that resolved prior to leaving stress lab. [ x]? No dyspnea noted. [ ]? Dyspnea that resolved prior to leaving stress lab. [ x]? Patient left stress lab asymptomatic and hemodynamically stable. [ ]? Patient taken to the Emergency Room due to non-resolving symptoms following stress test. [ ]? Patient achieved target heart rate. [ ]? Patient unable to achieve target heart rate. [ ]? Aminophylline administered as reversal agent to Lexiscan (Regadenoson). [ ]? Nitro administered. Nursing Comments: patient states no symptoms.
[2025-07-24] MEDS: REGADENOSON 0.4 MG/5 ML SYRINGE IV (10:36)
--- NOTE | 2025-07-24 17:55 | P.STRESS_ITS ---
Stress Test Stress Test Allergies Allergy/AdvReac Type Severity Reaction Status Date / Time No Known Drug Allergies Allergy Verified 05/03/23 18:39 Requesting physician: REYNOLD HYDE Procedure: Lexiscan nuclear stress test General Information: Reason for Stress Test: [Chest pain] Cardiac History and Risk Factors: [] Resting 12 - Lead Electrocardiogram: Resting twelve-lead EKG showed sinus bradycardia, heart rate 54 bpm, otherwise normal EKG. Resting blood pressure 113/73 mmHg. The patient was injected with Lexiscan 0.4 mg IV and she was monitored for few minutes. Peak heart rate 86 bpm, peak blood pressure 131/78 mmHg. Patient did not report any symptoms. EKGs throughout the test did not show any significant T or ST changes or any arr hythmias Stress Test: Protocol: [Lexiscan] Exercise Capacity: [Not assessed] Blood Pressure Response: [Normal] Rhythm: [No arrhythmia] ST - Response: [No ST changes] Patient Response: [No symptoms] Interpretation: Negative Lexiscan EKG stress test for ischemia Nuclear myocardial perfusion images result is reported separately Patt Brown MD, FACC
== END 2025-07-24 08:00 | disposition home or self-care (01) ==
LOC: CT 07:59
PROVIDERS: PCP Family Medicine; Visit Provider Internal Medicine Cardiovascular Disease
DX: R07.89 Other chest pain (principal); I25.10 Atherosclerotic heart disease of native coronary artery without angina pectoris
CPT/HCPCS: 71275; 78452; 93017; A9500; J2785; Q9967